=== PATIENT | male | born 1945 | race Caucasian/White ===

== ENCOUNTER → 2018-02-01 09:58 | Outpatient (CLI) | payer MEDICARE, OTHER, SELFPAY ==
--- NOTE | 2018-02-01 09:54 | DI.REPORT_ITS ---
SYMPTOMS/DIAGNOSIS: LT TKA LEFT KNEE: The patient is status post TKR. The prosthesis in good position and surrounding bone intact with no internal change when compared with the previous examination of 01/05/17.
== END ==
PROVIDERS: PCP Emergency Medicine; Visit Provider Physician Assistant
DX: M18.12 Unilateral primary osteoarthritis of first carpometacarpal joint, left hand (principal); Z96.652 Presence of left artificial knee joint; Z47.1 Aftercare following joint replacement surgery
CPT/HCPCS: 73560; 20600; 99213; J1030

== ENCOUNTER → 2018-11-21 15:04 | Outpatient (BNVA) | payer MEDICARE, SELFPAY | PROVIDERS: PCP Emergency Medicine; Visit Provider Urology | DX: N40.1 Benign prostatic hyperplasia with lower urinary tract symptoms (principal); R32 Unspecified urinary incontinence | CPT/HCPCS: 51798; 99213 ==

== ENCOUNTER 2019-01-05 11:10 | Outpatient (CLI) | payer MEDICARE, SELFPAY ==
--- NOTE | 2019-01-05 10:53 | DI.RAD_ITS ---
SYMPTOM/DIAGNOSIS: LEFT HIP PAIN LEFT HIP AND PELVIS: Three views. Comparison 09/09/17 There are again seen post surgical changes of a right total hip replacement. The orthopaedic hardware appears stable. Stable degenerative changes are seen in the left hip and lumbar spine. No acute fracture or dislocation is seen. The soft tissues show no acute abnormality.
== END 2019-01-05 11:30 ==
PROVIDERS: PCP Emergency Medicine; Referring Provider Emergency Medicine; Visit Provider Student in an Organized Health Care Education/Training Program
DX: M25.552 Pain in left hip (principal); Z96.641 Presence of right artificial hip joint; M70.62 Trochanteric bursitis, left hip
CPT/HCPCS: 20610; 99213; 73502; J1040

== ENCOUNTER → 2019-02-16 09:31 | Outpatient (BNVA) | payer MEDICARE, SELFPAY | PROVIDERS: PCP Emergency Medicine; Referring Provider Emergency Medicine; Visit Provider Student in an Organized Health Care Education/Training Program | DX: M25.552 Pain in left hip (principal); Z98.890 Other specified postprocedural states; M70.62 Trochanteric bursitis, left hip | CPT/HCPCS: 99213 ==

== ENCOUNTER → 2019-04-27 07:56 | Outpatient (BNVA) | payer MEDICARE, SELFPAY | PROVIDERS: PCP Emergency Medicine; Referring Provider Emergency Medicine; Visit Provider Student in an Organized Health Care Education/Training Program | DX: M54.16 Radiculopathy, lumbar region (principal); E11.42 Type 2 diabetes mellitus with diabetic polyneuropathy; Z79.4 Long term (current) use of insulin | CPT/HCPCS: 99214 ==

== ENCOUNTER 2019-05-21 01:01 | Outpatient (CLI) | payer MEDICARE, SELFPAY ==
--- NOTE | 2019-05-21 09:07 | DI.MRI_ITS ---
EXAM: MR LUMBAR SPINE WO CLINICAL HISTORY: RLE pain and numbness, acute rt lumbar radiculopathy, synovial cyst lumbar. TECHNIQUE: Multiplanar multisequence MRI was performed. COMPARISON: MRI - LUMBAR SPINE WO CONTRAST from 06/23/2015 MRI - LUMBAR SPINE WO CONTRAST from 06/23/2015 Lumbar Spine Complete from 10/21/2017 FINDINGS: The T12-L1 level shows minimal bulging. At L1-2, there is marked loss of disc height and prominent br oad-based disc osteophytes causing mild neural foraminal narrowing. There has been interval surgery a t this level since the previous exam and there is no longer significant central canal stenosis. There is apparent fusion between the L2 and L3 vertebral bodies. Laminectomy defects are seen from L2 thro ugh L4. At L3-4, there are broad-based disc osteophytes as well as facet degenerative changes. There is no significant central canal stenosis. There is moderate to severe bilateral neural foraminal na rrowing. At L4-5, there is again noted be more marked loss of disc height and small disc osteophytes as well as facet degenerative changes and ligamentous hypertrophy. There is mild bilateral neural f oraminal encroachment, minimal central canal stenosis. At L5-S1, the disc is relatively well maintai odalys in height. There is now a right paracentral disc herniation with superior extrusion of disc mate rial posterior to the L5 vertebral body. There are prominent facet joint degenerative changes, great er on the right. There is uyawwtla-vd-ljjrod right and depu-zj-zbpbeglq left neural foraminal narrowi ng. There is moderate central canal stenosis due to a combination of the disc herniation, facet dege nerative changes and ligamentous hypertrophy. Conus medullaris is unremarkable. Degenerative signal changes are seen in the vertebral bodies. IMPRESSION: Large right paracentral disc extrusion at L5-S1 contributing to central canal stenosis as well as cau sing nerve root impingement.
== END 2019-05-21 01:21 ==
PROVIDERS: PCP Emergency Medicine; Visit Provider Student in an Organized Health Care Education/Training Program
DX: M79.661 Pain in right lower leg (principal); R20.0 Anesthesia of skin; M54.16 Radiculopathy, lumbar region; M51.17 Intervertebral disc disorders with radiculopathy, lumbosacral region; M48.07 Spinal stenosis, lumbosacral region
CPT/HCPCS: 72148

== ENCOUNTER 2020-02-20 10:01 | Outpatient (CLI) | payer MEDICARE, SELFPAY ==
[2020-02-20 12:50] LABS: Anion Gap 7.4 mmol/L (3-11); BUN 20 mg/dL (7-18); CO2 29.6 mmol/L (21.0-32.0); CREATININE 0.94 mg/dL (0.70-1.30); Calcium 9.9 mg/dL (8.5-10.1); Chloride 101 mmol/L (98-107); Glucose 128 mg/dL (74-106); Potassium 5.2 mmol/L (3.5-5.1); Sodium 138 mmol/L (136-145)
[2020-02-20 13:02] LABS: Hemoglobin A1C 6.9 % (<5.7)
== END 2020-02-20 10:21 ==
PROVIDERS: PCP Emergency Medicine; Visit Provider Emergency Medicine
DX: E11.9 Type 2 diabetes mellitus without complications (principal); I10 Essential (primary) hypertension
CPT/HCPCS: 36415; 80048; 83036

== ENCOUNTER → 2020-03-20 13:12 | Outpatient (BNVA) | payer MEDICARE, SELFPAY | PROVIDERS: PCP Emergency Medicine; Referring Provider Emergency Medicine; Visit Provider Urology | DX: N40.1 Benign prostatic hyperplasia with lower urinary tract symptoms (principal); R32 Unspecified urinary incontinence; E11.42 Type 2 diabetes mellitus with diabetic polyneuropathy; Z79.4 Long term (current) use of insulin | CPT/HCPCS: 99213 ==

== ENCOUNTER 2020-10-24 12:09 | Outpatient (REF) | payer MEDICARE, SELFPAY ==
[2020-10-24 18:28] LABS: Bilirubin Negative (Negative); Blood Negative (Negative); Clarity Clear (Clear); Glucose 500 mg/dL (Negative); Ketones Trace mg/dL (Negative); Leukocyte Esterase Negative (Negative); Nitrite Negative (Negative); Specific Gravity 1.025 (1.005-1.025); Urobilinogen 0.2 EU/dL (Up TO 0.2)
[2020-10-24 18:47] LABS: ALT 27 U/L (16-63); AST 20 U/L (15-37); Albumin 3.9 g/dL (3.4-5.0); Alkaline Phosphatase 91 U/L (46-116); Amylase 50 U/L (25-115); Anion Gap 9.1 mmol/L (3-11); BUN 34 mg/dL (7-18); Bilirubin, Total 0.4 mg/dL (0.2-1.0); CO2 25.9 mmol/L (21.0-32.0); CREATININE 0.9 mg/dL (0.70-1.30); Calcium 9.3 mg/dL (8.5-10.1); Chloride 103 mmol/L (98-107); Glucose 134 mg/dL (74-106); Lipase 70 U/L (73-393); Potassium 4.7 mmol/L (3.5-5.1); Sodium 138 mmol/L (136-145)
[2020-10-24 18:51] LABS: HCT 40.7 % (40.0-50.0); HGB 13.5 g/dL (13.5-17.5); MCH 32.8 pg (27.0-33.0); MCHC 33.2 % (32.0-36.0); MPV 11.5 fL (8.0-11.0); Platelet Count 182 10^3/uL (130-400); RBC 4.11 10^6/uL (4.36-5.78); RDW 13.7 % (11.8-14.1); RDW-SD 49.3 fL; WBC 11.06 10^3/uL (4.4-10.8)
== END 2020-10-24 12:10 | disposition home or self-care (01) ==
LOC: LBN 12:09
PROVIDERS: PCP Emergency Medicine; Visit Provider Emergency Medicine
DX: R10.11 Right upper quadrant pain (principal); E11.9 Type 2 diabetes mellitus without complications; R30.0 Dysuria
CPT/HCPCS: 80053; 83690; 85027; 81003; 82150

== ENCOUNTER 2020-11-18 10:23 | Outpatient (CLI) | payer MEDICARE, SELFPAY ==
[2020-11-18 12:33] LABS: Abs Immature Grans 0.04 10^3/uL (0.0-0.06); Absolute Basophil Count 0.12 10^3/uL (0.0-0.2); Absolute Eosinophil Count 0.67 10^3/uL (0.0-0.7); Absolute Lymphocyte Count 1.91 10^3/uL (1.2-3.4); Absolute Monocyte Count 1.03 10^3/uL (0.1-0.8); Basophils % 1.3; ESR 11 mm/hr (0-20); Eosinophils % 7.2; HCT 42.9 % (40.0-50.0); HGB 13.9 g/dL (13.5-17.5); Immature Grans % 0.4; Lymphocytes % 20.4; MCH 32.4 pg (27.0-33.0); MCHC 32.4 % (32.0-36.0); MPV 10.1 fL (8.0-11.0); Neutrophils % 59.7; Nucleated RBC 0 %; Platelet Count 317 10^3/uL (130-400); RBC 4.29 10^6/uL (4.36-5.78); RDW 13.8 % (11.8-14.1); RDW-SD 49.7 fL; WBC 9.37 10^3/uL (4.4-10.8)
[2020-11-18 12:45] LABS: C-Reactive Protein 3.02 mg/dL (0.0-0.3)
[2020-11-19 11:33] LABS: Lyme Ab w Rflx to Lyme Confirm Negative (Negative)
== END 2020-11-18 10:24 | disposition home or self-care (01) ==
LOC: LOS 10:23
PROVIDERS: PCP Emergency Medicine; Visit Provider Emergency Medicine
DX: M35.3 Polymyalgia rheumatica (principal); M25.59 Pain in other specified joint; D72.829 Elevated white blood cell count, unspecified
CPT/HCPCS: 36415; 80061; 85652; 85025; 86140; 86618

== ENCOUNTER 2020-12-04 16:28 | Outpatient (REF) | payer MEDICARE, SELFPAY ==
[2020-12-04 21:18] LABS: Abs Immature Grans 0.03 10^3/uL (0.0-0.06); Absolute Basophil Count 0.08 10^3/uL (0.0-0.2); Absolute Eosinophil Count 0.32 10^3/uL (0.0-0.7); Absolute Lymphocyte Count 1.57 10^3/uL (1.2-3.4); Absolute Monocyte Count 1.22 10^3/uL (0.1-0.8); Absolute Neutrophil Count 5.72 10^3/uL (1.2-6.7); Basophils % 0.9; Eosinophils % 3.6; HCT 41.3 % (40.0-50.0); HGB 13.7 g/dL (13.5-17.5); Immature Grans % 0.3; Lymphocytes % 17.6; MCH 32.5 pg (27.0-33.0); MCHC 33.2 % (32.0-36.0); MCV 97.9 fL (80-95); MPV 10.6 fL (8.0-11.0); Monocytes % 13.6; Nucleated RBC 0 %; Platelet Count 366 10^3/uL (130-400); RBC 4.22 10^6/uL (4.36-5.78); RDW 13.5 % (11.8-14.1); RDW-SD 47.9 fL; WBC 8.94 10^3/uL (4.4-10.8)
[2020-12-04 21:21] LABS: ESR 34 mm/hr (0-20)
[2020-12-04 21:29] LABS: ALT 20 U/L (16-63); AST 13 U/L (15-37); Albumin 3.6 g/dL (3.4-5.0); Alkaline Phosphatase 78 U/L (46-116); Anion Gap 8.6 mmol/L (3-11); BUN 26 mg/dL (7-18); Bilirubin, Total 0.3 mg/dL (0.2-1.0); C-Reactive Protein 5.92 mg/dL (0.0-0.3); CO2 26.4 mmol/L (21.0-32.0); CREATININE 0.9 mg/dL (0.70-1.30); Calcium 9.7 mg/dL (8.5-10.1); Chloride 104 mmol/L (98-107); Glucose 129 mg/dL (74-106); Potassium 4.5 mmol/L (3.5-5.1); Sodium 139 mmol/L (136-145)
[2020-12-09 08:54] LABS: Cyclic Citrullinated Peptide <2.5 U/mL (<5.0); Lyme Ab w Rflx to Lyme Confirm Negative (Negative)
[2020-12-09 14:29] LABS: Albumin 56.9 % (55.8-66.1); Total Protein 6.9 g/dL (6.3-8.2)
== END 2020-12-04 16:29 | disposition home or self-care (01) ==
LOC: LBN 16:28
PROVIDERS: PCP Emergency Medicine; Visit Provider Emergency Medicine
DX: M19.90 Unspecified osteoarthritis, unspecified site (principal); G56.00 Carpal tunnel syndrome, unspecified upper limb; M25.59 Pain in other specified joint; M25.571 Pain in right ankle and joints of right foot; M25.572 Pain in left ankle and joints of left foot; M25.542 Pain in joints of left hand; M25.541 Pain in joints of right hand; R53.1 Weakness; R07.1 Chest pain on breathing
CPT/HCPCS: 80053; 85652; 86200; 84165; 85025; 86140; 86618

== ENCOUNTER 2020-12-17 02:03 | Outpatient (CLI) | payer MEDICARE, SELFPAY ==
--- NOTE | 2020-12-17 08:35 | DI.NM_ITS ---
Exam(s) NM BONE SCAN 3 PHASE EXAM: NM BONE SCAN 3 PHASE CLINICAL HISTORY: bone pain,ARTHRITIS, M19.90. TECHNIQUE: Injected Dose: 25 mCi Tc-99m MDP COMPARISON: CR Lumbar Spine Complete from 10/21/2017 CR Lumbar Spine Complete from 10/21/2017 CR XR hip LT complete AP pelvis from 01/05/2019 CR XR hip LT complete AP pelvis from 01/05/2019 FINDINGS: The immediate flow/perfusion phase reveals no significant focal abnormal osseous uptake in the region of lumbar spine. Blood pool images reveal no significant abnormal osseous uptake. Expected uptake in the kidneys is s een. Kidneys exhibit size. Delayed images reveal abnormal uptake at the superior endplate level of L2 vertebral body. Also incr eased uptake on both sides of the upper T11 and T12 vertebral bodies. There is no abnormal uptake in the upper thoracic and cervical spines nor in the lower levels of the lumbar spine. There is no abnormal uptake in the rib cages nor in the shoulder girdles. No abnormal uptake is evid ent in the skull. Symmetrical uptake in the sternoclavicular joints is noted and is probably degenerative. There is photopenic zone in the right hip consistent with prosthesis. Some focal uptake is seen in t he ipsilateral greater trochanter. Most recent plain film images of this region were January 2019. In the left hip region there is a focus of increased uptake seen in the region of the inferior aspect of the acetabulum, posteriorly, best seen on the posterior images There is a photopenic zone in the left knee consistent with prosthesis. No significant uptake in thi s region. Some uptake in the opposite-right knee is probably degenerative. IMPRESSION: 1. Areas of abnormal radiopharmaceutical uptake seen in the lower thoracic and upper lumbar regions a s described above. Plain films are recommended. Most recent plain films were in October 2017. 2. There is a focus of abnormal uptake is seen in the greater trochanter of the right hip. This is t he hip which has a prosthesis. Plain films recommended. Most recent plain films were 2018 3. There is a focus of abnormal uptake seen in the posterior left hip acetabular region. Plain films also recommend. DATA REPOSITORY:
== END 2020-12-17 02:23 ==
PROVIDERS: PCP Emergency Medicine; Visit Provider Emergency Medicine
DX: M19.90 Unspecified osteoarthritis, unspecified site (principal); Z96.641 Presence of right artificial hip joint
CPT/HCPCS: 78315

== ENCOUNTER 2021-01-13 16:59 | Emergency (ER) | payer MEDICARE, SELFPAY ==
[2021-01-13] VITALS (27 sets, daily range): BP systolic 86–148; BP diastolic 64–92; PULSE 56–76; RESP 9–23; TEMP 37.4; O2SAT 94–96
--- NOTE | 2021-01-13 17:16 | W.ED.GENAD ---
Discharge Plan Disposition Patient Disposition: HOME Condition: Stable Discharge Details Clinical Impression: Left leg weakness, History of peripheral neuropathy Primary Care Provider: Robbie Hwang ED Provider: Jelena Rico Home Meds and New Rx's Prescriptions: Continued acetaminophen [Masophen] 500 mg tablet 1,000 mg PO TID RF: 0 Jardiance 10 mg tablet 10 mg PO DAILY RF: 0 mirtazapine [Remeron] 15 mg tablet 15 mg PO QHS Qty: 90 RF: 2 prednisone 5 mg tablet 5 mg PO DAILY RF: 0 (DME) pen needle, diabetic [BD Ultra-Fine Iris Pen Needle] 32 gauge x 5/32 needle 1 ea Miscellaneous DAILY Qty: 200 RF: 8 hydroxyzine HCl 25 mg tablet 25 mg PO daily prn Qty: 90 RF: 3 losartan 25 mg tablet 25 mg PO DAILY Qty: 90 RF: 3 rosuvastatin [Crestor] 5 mg tablet 5 mg PO DAILY Qty: 90 RF: 3 ONE TOUCH ULTRA 1 EACH EACH 1 ea Miscellaneous AC Qty: 270 RF: 3 ONE TOUCH LANCETS 1 EACH EACH 1 ea Miscellaneous BID Qty: 180 RF: 3 (DME) blood-glucose meter 1 EACH misc 1 ea Miscellaneous ONCE Qty: 1 RF: 0 methotrexate sodium 2.5 MG tablet 5 tab PO WEEKLY RF: 0 folic acid 1 MG tablet 1 mg PO DAILY RF: 0 (DME) OneTouch Ultra Test 1 EACH strip 1 ea Miscellaneous TID Qty: 400 RF: 4 Levemir FlexTouch U-100 Insuln 100 unit/mL (3 mL) insulin pen 24 unit subcut BID RF: 0 metformin 500 mg tablet 500 mg PO BID Qty: 180 RF: 3 ibuprofen 800 mg tablet 800 mg PO BID PRN (Reason: pain) Qty: 180 RF: 0 cephalexin 500 mg capsule 500 mg PO TID Qty: 270 RF: 1 omeprazole 20 mg capsule,delayed release(DR/EC) 20 mg PO DAILY Qty: 90 RF: 3 insulin aspart U-100 [Novolog PenFill U-100 Insulin] 100 unit/mL cartridge 3 - 10 unit subcut PRN PRNRF: 0 aspirin [Aspir-81] 81 MG tablet,delayed release (DR/EC) 81 mg PO DAILY RF: 0 Discharge Instructions Instructions: Peripheral Neuropathy (ED), Weakness (ED) Additional Instructions: Take your regular medications as directed. Call your neurologist tomorrow morning to schedule a follow up appointment in the next week for re-evaluation and for consideration for outpatient lumbar spine MRI. Return immediately to the emergency department if you develop any worsening or new concerning symptoms such as bowel or bladder function, worsening leg weakness or inability to ambulate. Discharge Data Discharge Date/Time-TO BE ENTERED AT DEPARTURE: 01/13/21 20:55 Discharge Physician: Jelena Rico Medical Decision Making 75-year-old male who presents for evaluation for Dr. Hwang after noted to have left leg weakness for the last 3 days. His left leg weakness has improved but now complains of mainly difficulty controlling his left leg and spasticity when walking. He denies any leg numbness or pain. No cauda equina symptoms. No urinary symptoms or fever. No injury. Patient appears comfortable and nontoxic. His vitals are within normal limits. He has no midline lumbar spinal or bilateral paraspinal tenderness. Midline lumbar surgical scar well-healed without signs of trauma or cellulitis. He has no focal deficits on exam. Muscle strength normal to bilateral lower extremities. His reflexes are hyporeactive throughout. His distal pulses are intact. Skin is normal to inspection. History and presentation does not appear consistent with CVA. At this point in time, I am not concerned of an acute neurological issue such as cauda equina syndrome. MRI is not available. Will obtain screening labs, CT head, CT lumbar spine and give pain medication and muscle relaxers and reassess. Labs and imaging reviewed and unremarkable. White blood cell count 10. CRP 1.16 which is improved compared to previous. CT head negative. CT lumbar spine notes severe degenerative disc disease but no other acute findings. Patient reassessed and states his back pain is better. He ambulated and still has some mild ataxia in his left leg but states he feels it is slightly better. Case discussed with [facility] neurology who reviewed the images and feel that this is likely a peripheral neuropathy, i.e. a peroneal neuropathy in addition to his baseline peripheral neuropathy. Patient has seen [facility] neurology for his peripheral neuropathy and Dr. Pelletier is recommending he follow-up with [facility] neurology as soon as possible for reevaluation. Does not see indication for urgent MRI which I agree. Patient feels comfortable with plan and feels good going home. He was given 2 tabs of Valium to help with sleep. Patient placed on care management list to help arrange for this follow-up appointment with neurology. Medical Records Medical records reviewed: Yes I reviewed the patient's medical records. Imaging Data Radiologic Study: Radiologist's impression: CT Lumbar Spine Without Contrast Exam date and time: 01/13/2021 5:53 PM Age: 75 years old Clinical indication: Other: Lower back pain, L leg weakness/spasticity, R/O disc herniation; Additional info: Lower back pain, L leg weakness/spasticity, R/O disc herniation TECHNIQUE: Imaging protocol: Computed tomography images of the lumbar spine without contrast. Total images: 2121 Radiation optimization: All CT scans at this facility use at least one of these dose optimization techniques: automated exposure control; mA and/or kV adjustment per patient size (includes targeted exams where dose is matched to clinical indication); or iterative reconstruction. COMPARISON: MR LUMBAR SPINE WO 05/21/2019 9:07 AM FINDINGS: Vertebrae: Alignment is normal. Vertebral body heights are maintained. There is severe multilevel disc height loss, endplate spurring and facet hypertrophy. Discs/Spinal canal/Neural foramina: No significant disc protrusion. No severe spinal canal stenosis. No significant neural foraminal narrowing. Other bones/joints: No acute bone abnormality. Stomach and bowel: There are sigmoid/descending colonic diverticuli. Vasculature: The aorta demonstrates moderate atherosclerotic calcification. Soft tissues: Unremarkable. IMPRESSION: 1. No acute abnormality. 2. Severe degenerative disc disease. 3. Sigmoid/descending colonic diverticulosis. CT Head Without Contrast Exam date and time: 01/13/2021 5:53 PM Age: 75 years old Clinical indication: Other: L leg weakness, spasticity, R/O acute CVA TECHNIQUE: Imaging protocol: Computed tomography of the head without contrast. Other technique: STROKE PROTOCOL was implemented. COMPARISON: No relevant prior studies available. FINDINGS: Brain: Changes of mild cerebral and cerebellar atrophy. No acute focal intracranial lesions. Cerebral ventricles: No ventriculomegaly. Paranasal sinuses: Mucosal polyp versus retention cyst within left maxillary sinus, partially imaged. No fluid levels. Mastoid air cells: Unremarkable as visualized. No mastoid effusion. Bones/joints: No acute fracture. Soft tissues: Unremarkable. IMPRESSION: Changes of cerebral and cerebellar atrophy. No acute focal intracranial lesions. Lab Data Lab results reviewed: Yes I reviewed the patient's lab results. Labs: Laboratory Tests Range/Units 01/13/21 01/13/21 01/13/21 17:55 17:55 17:55 WBC (4.4-10.8) 10^3/uL 10.94 H RBC (4.36-5.78) 10^6/uL 4.19 L Hgb (13.5-17.5) g/dL 13.2 L Hct (40.0-50.0) % 39.2 L MCV (80-95) fL 93.6 MCH (27.0-33.0) pg 31.5 MCHC (32.0-36.0) % 33.7 RDW (11.8-14.1) % 15.6 H Plt Count (130-400) 10^3/uL 194 MPV (8.0-11.0) fL 10.6 Immature Gran % 0.4 Neutrophils % 68.3 Lymphocytes % 18.5 Monocytes % 8.8 Eosinophils % 3.5 Basophils % 0.5 Nucleated RBC % % 0 Absolute Neutrophils (1.2-6.7) 10^3/uL 7.47 H Absolute Lymphocytes (1.2-3.4) 10^3/uL 2.02 Absolute Monocytes (0.1-0.8) 10^3/uL 0.96 H Absolute Eosinophils (0.0-0.7) 10^3/uL 0.38 Absolute Basophils (0.0-0.2) 10^3/uL 0.05 ESR (0-20) mm/hr 15 Sodium (136-145) mmol/L 140 Potassium (3.5-5.1) mmol/L 3.9 Chloride (98-107) mmol/L 104 Carbon Dioxide (21.0-32.0) mmol/L 25.9 Anion Gap (3-11) mmol/L 10.1 BUN (7-18) mg/dL 27 H Creatinine (0.70-1.30) mg/dL 1.0 Estimated GFR/1.73 m2 (mL/min/1.73m2) >= 60.00 Glucose (74-106) mg/dL 125 H Calcium (8.5-10.1) mg/dL 9.7 Total Bilirubin (0.2-1.0) mg/dL 0.5 AST (15-37) U/L 17 ALT (16-63) U/L 27 Alkaline Phosphatase (46-116) U/L 75 C-Reactive Protein (0.0-0.3) mg/dL 1.16 H Total Protein (6.4-8.2) g/dL 7.3 Albumin (3.4-5.0) g/dL 3.8 HPI General Mode of arrival: ambulatory. Date/Time Provider Initiated Documentation: 01/13/21 17:05. Limitations to Documentation: no limitations. Information obtained by: patient. HPI Narrative: Patient is a 75-year-old male with a history of chronic back pain, multiple lumbar spine surgeries, osteoarthritis, diabetes, polymyalgia rheumatica, diabetic neuropathy who presents with left leg weakness and sensation of spasticity when walking for the past 3 days. Patient states he awoke 3 days ago in the morning and stood up to get out of bed and fell due to left leg weakness. He states he had difficulty bearing weight on his left leg due to weakness the entire day. He states for the past 2 days he has had improved muscle strength in his left leg but feels that the left leg is difficult to control and spastic at times. He states he has chronic left-sided back pain for several years and states this is no worse than usual. He states he has had chronic right mid back and right upper quadrant pain for several months which has been followed by Dr. Hwang with unremarkable bone scans and liver scans and was told it may be herpes zoster although he never developed a rash. Patient denies any pain in his leg. He denies any bowel or bladder incontinence, saddle anesthesia or acute urinary symptoms. Patient states he has had an increase in his ocular migraines occurring twice weekly over the past couple weeks. He states he has never seen a neurologist for his migraines. He denies any upper extremity symptoms or right leg symptoms. Related Data Home Medications Medication Instructions Recorded Confirmed blood-glucose meter #1 ea 01/10/15 12/25/20 folic acid 1 mg PO DAILY tab-cap 03/11/15 01/13/21 methotrexate sodium 5 tab PO WEEKLY 03/11/15 01/13/21 unbound technologiesTouch Ultra Test #400 strip 06/16/16 12/25/20 aspirin [Aspir-81] 81 mg PO DAILY 02/02/17 01/13/21 acetaminophen 500 mg tablet 1,000 mg PO TID tab 05/19/18 01/13/21 empagliflozin 10 mg tablet 10 mg PO DAILY 05/19/18 01/13/21 insulin aspart U-100 100 unit/mL 3 - 10 unit SUBCUT PRN PRN 01/05/19 01/13/21 subcutaneous cartridge insulin detemir U-100 100 unit/mL 24 unit SUBCUT BID ml 01/05/19 01/13/21 (3 mL) subcutaneous pen pen needle, diabetic 32 gauge x #200 each 02/08/20 12/25/20 metformin 500 mg tablet 500 mg PO BID #180 tab-cap 06/12/20 01/13/21 hydroxyzine HCl 25 mg tablet 25 mg PO daily prn #90 tab 10/24/20 01/13/21 losartan 25 mg tablet 25 mg PO DAILY #90 tab-cap 10/24/20 01/13/21 rosuvastatin 5 mg tablet 5 mg PO DAILY #90 tab-cap 10/24/20 01/13/21 ibuprofen 800 mg tablet 800 mg PO BID PRN #180 tab 11/05/20 01/13/21 mirtazapine 15 mg tablet 15 mg PO QHS #90 tab 12/04/20 01/13/21 cephalexin 500 mg capsule 500 mg PO TID #270 cap 01/09/21 01/13/21 omeprazole 20 mg capsule,delayed 20 mg PO DAILY #90 tab-cap 01/09/21 01/13/21 release prednisone 5 mg tablet 5 mg PO DAILY 01/13/21 01/13/21 Previous Rx's Medication Instructions Recorded pen needle, diabetic 32 gauge x #200 each 02/08/20 metformin 500 mg tablet 500 mg PO BID #180 tab-cap 06/12/20 hydroxyzine HCl 25 mg tablet 25 mg PO daily prn #90 tab 10/24/20 losartan 25 mg tablet 25 mg PO DAILY #90 tab-cap 10/24/20 rosuvastatin 5 mg tablet 5 mg PO DAILY #90 tab-cap 10/24/20 ibuprofen 800 mg tablet 800 mg PO BID PRN #180 tab 11/05/20 mirtazapine 15 mg tablet 15 mg PO QHS #90 tab 12/04/20 cephalexin 500 mg capsule 500 mg PO TID #270 cap 01/09/21 omeprazole 20 mg capsule,delayed 20 mg PO DAILY #90 tab-cap 01/09/21 release Allergies Allergy/AdvReac Type Severity Reaction Status Date / Time atorvastatin AdvReac Mild muscle/joint Verified 01/13/21 17:14 aches pravastatin AdvReac Mild muscle/joint Verified 01/13/21 17:14 aches simvastatin AdvReac Mild muscle/joint Verified 01/13/21 17:14 aches General Stated Complaint: CVA/TIA ISMA: 3 Review of Systems All systems reviewed & are unremarkable except as noted in HPI and below Constitutional Constitutional: Reports as per HPI, Denies chills and Denies fever(s) Eyes Eyes: Denies blurry vision ENT Ears, Nose, Mouth, and Throat: Denies dizziness, Denies sore throat and Denies throat swelling Cardiovascular Cardiovascular: Denies chest pain and Denies dyspnea Respiratory Respiratory: Denies cough and Denies dyspnea Gastrointestinal Gastrointestinal: Denies abdominal pain, Denies diarrhea and Denies vomiting Genitourinary Genitourinary: Denies hematuria and Denies dysuria Musculoskeletal Musculoskeletal: Reports back pain and Denies numbness Comments: Left leg weakness Integumentary/Breasts Skin/Breast: Denies lesions and Denies rash Neurologic Neurologic: Denies dizziness, Reports localized weakness and Denies numbness Allergic/Immunologic Allergic/Immunologic: Denies throat swelling [facility] Medical History (Updated 01/13/21 @ 20:12 by Jelena Rico DO) Arthritis Arthritis of carpometacarpal (CMC) joint of left thumb (11/21/17) Benign prostatic hyperplasia Bilateral shoulder pain Carpal tunnel syndrome 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 ELIDA Guillermo Osteoarthritis of lumbar spine (09/12/15) Peripheral neuralgia Polymyalgia rheumatica Primary osteoarthritis of left knee (10/06/16) Psoriasis Regular astigmatism (07/31/12) RUQ pain Synovial cyst of lumbar facet joint (12/26/17) Toenail deformity Trigger thumb, left thumb (10/21/17) Type 2 diabetes mellitus with diabetic polyneuropathy, with long-term current use of insulin (11/10/16) Surgical History (Updated 04/28/19 @ 09:46 by Felton Goldman MD) Colonoscopy - MAC 10/17;NEG Knee debridement 01/20 Replacement of total knee joint (~12/2016) Status post total left knee replacement (01/14/17) Total replacement of hip (~2006) Family History Mother Alcohol abuse Depression Heart disease Father Alcohol abuse Sister No problems noted. Brother No problems noted. Brother Depression Brother No problems noted. Social History Smoking/Tobacco Use Status: Former Tobacco Use Tobacco: How many years used: 6 Smoking risk assessment performed?: Yes Drug use: Rarely Substance use type: marijuana Do you feel safe at home: Yes Do you feel safe in your relationship?: Yes Exam Const General: cooperative and no acute distress HENMT Head: normal to inspection Face and sinus: normal facial exam Eyes General: appearance normal, both eyes and all related structures EOM: EOM intact bilaterally Neck Neck: normal visual inspection and No submandibular swelling Lymphatic: no lymphadenopathy noted Chest Chest: normal inspection of the chest and no tenderness Resp Effort & Inspection: normal respiratory effort and able to speak in complete sentences Auscultation: clear to auscultation bilaterally Cardio Rate: regular rate Rhythm: regular rhythm GI Inspection: normal to inspection Palpation: soft, not firm, not rigid and nontender Auscultation: normal bowel sounds Back/Spine/Pelvis Thoracic/Lumbar Spine: surgical scar(s) present (Midline lumbar spine, no cellulitis or trauma) Skin General skin exam: no rashes or lesions noted Neuro General: patient alert, patient awake and patient oriented x3 Cognition: normal cognition Speech: speech normal Motor: muscle tone normal throughout Sensory Exam: no sensory deficits noted DTR's: Rt Patellar: 0, Lt Patellar: 0, Rt Ankle: 0 and Lt Ankle: 0 Plantar Reflexes: Equivocal: bilateral (negative babinski b/l ) Other: No clonus bilateral lower extremities. Extrem General: normal to inspection, full ROM, capillary refill normal, no calf tenderness bilaterally and no edema Other: Bilateral DP/PT pulses intact. Psych Appearance: grossly normal Mental Status: mental status grossly normal Speech and Movement: speech and movement normal Affect: normal affect Course Vital Signs Vital signs: Vital Signs Temperature 99.3 F 01/13/21 17:07 Pulse 66 01/13/21 17:07 Respiratory Rate 17 01/13/21 17:07 Blood Pressure 148/67 H 01/13/21 17:07 Pulse Oximetry 96 01/13/21 17:07 Temperature 99.3 F 01/13/21 17:07 Temperature Source Temporal Artery Scan 01/13/21 17:07 Pulse 66 01/13/21 17:07 Respiratory Rate 17 01/13/21 17:07 Respiratory Effort Non-Labored 01/13/21 17:12 Blood Pressure 148/67 H 01/13/21 17:07 Blood Pressure Position Sitting 01/13/21 17:07 Pulse Oximetry 96 01/13/21 17:07 Oxygen Delivery Method Room Air 01/13/21 17:07 Oxygen Flow Rate 0 01/13/21 17:07 Pain Level 4 01/13/21 17:07
--- NOTE | 2021-01-13 17:45 | DI.CT_ITS ---
Exam(s) CT HEAD WO EXAM: CT HEAD WO CLINICAL HISTORY: L leg weakness, spasticity. TECHNIQUE: Imaging Protocol: Axial computed tomography images with coronal and sagittal reformatted images were created and reviewed COMPARISON: No exams were available for comparison FINDINGS: Ventricles and Extra axial spaces: Normal in size and morphology for the patient's age. Hemorrhage: None. Cerebral parenchyma: Mild atrophy, consistent with the patient's age.. No significant white matter changes. Midline shift: None. Brainstem/Cerebellum: Normal. Calvarium: Normal. Visualized Paranasal sinuses/Mastoids: Mucous retention cyst floor left maxillary sinus. IMPRESSION: No acute abnormality. RADIATION DOSE DELIVERED: 766mGy.cm Total DLP 766mGy.cm Total DLP DATA REPOSITORY: All CT scans at this facility are submitted to the National Radiology Data Registry (NRDR) Dose Index Registry (DIR) with the [employer] ([employer]). RADIATION OPTIMIZATION: All CT scans at this facility use at least one of these dose optimization te chniques: automated exposure control; mA and/or kV adjustment per patient size (includes targeted exa ms where dose is matched to clinical indication); or iterative reconstruction.
--- NOTE | 2021-01-13 17:45 | DI.CT_ITS ---
Exam(s) CT LUMBAR SPINE WO EXAM: CT LUMBAR SPINE WO CLINICAL HISTORY: lower back pain, L leg weakness/spasticity. TECHNIQUE: Imaging Protocol: Axial computed tomography images with coronal and sagittal reformatted images were created and reviewed CONTRAST MATERIAL: Noncontrast COMPARISON: MR MR LUMBAR SPINE WO from 05/21/2019 MR MR LUMBAR SPINE WO from 05/21/2019 FINDINGS: There is no evidence of fracture. The vertebral bodies are maintained in height. There is severe na rrowing of the disc spaces from L1-2 through L4-5 with prominent endplate osteophytes. There is bila teral neural foraminal narrowing at multiple levels. There is obliteration of the disc at L2-3. Thi s appears unchanged when compared with previous MRI. An L5 laminectomy defect is seen. Previously no nba disc herniation is no longer seen.. There are prominent facet joint degenerative changes. The aorta shows moderate calcification is normal in diameter. There are parapelvic cysts in the left kidney. Diverticulosis is noted in the sigmoid colon. The bladder is unremarkable. There is a rig ht hip prosthesis creating artifact.. IMPRESSION: Severe degenerative disc changes and facet degenerative changes. L5 laminectomy. RADIATION DOSE DELIVERED: 1,037.33mGy.cm Total DLP DATA REPOSITORY: All CT scans at this facility are submitted to the National Radiology Data Registry (NRDR) Dose Index Registry (DIR) with the [employer] (ACR). RADIATION OPTIMIZATION: All CT scans at this facility use at least one of these dose optimization te chniques: automated exposure control; mA and/or kV adjustment per patient size (includes targeted exa ms where dose is matched to clinical indication); or iterative reconstruction.
[2021-01-13] MEDS: Dexamethasone 10 MG/ML VIAL IVP (18:05)
[2021-01-13] MEDS: diazePAM 5 MG TAB PO (18:05)
[2021-01-13] MEDS: MORPHine 4 MG/ML SYR IVP (18:10)
[2021-01-13 18:12] LABS: Abs Immature Grans 0.04 10^3/uL (0.0-0.06); Absolute Eosinophil Count 0.38 10^3/uL (0.0-0.7); Absolute Lymphocyte Count 2.02 10^3/uL (1.2-3.4); Absolute Monocyte Count 0.96 10^3/uL (0.1-0.8); Basophils % 0.5; Eosinophils % 3.5; HCT 39.2 % (40.0-50.0); HGB 13.2 g/dL (13.5-17.5); Immature Grans % 0.4; Lymphocytes % 18.5; MCH 31.5 pg (27.0-33.0); MCHC 33.7 % (32.0-36.0); MCV 93.6 fL (80-95); MPV 10.6 fL (8.0-11.0); Monocytes % 8.8; Neutrophils % 68.3; Nucleated RBC 0 %; Platelet Count 194 10^3/uL (130-400); RBC 4.19 10^6/uL (4.36-5.78); RDW 15.6 % (11.8-14.1); RDW-SD 52.6 fL; WBC 10.94 10^3/uL (4.4-10.8)
[2021-01-13 18:14] LABS: Absolute Basophil Count 0.05 10^3/uL (0.0-0.2); Absolute Neutrophil Count 7.47 10^3/uL (1.2-6.7)
[2021-01-13 18:18] LABS: ESR 15 mm/hr (0-20)
[2021-01-13 18:28] LABS: ALT 27 U/L (16-63); AST 17 U/L (15-37); Albumin 3.8 g/dL (3.4-5.0); Alkaline Phosphatase 75 U/L (46-116); Anion Gap 10.1 mmol/L (3-11); BUN 27 mg/dL (7-18); Bilirubin, Total 0.5 mg/dL (0.2-1.0); C-Reactive Protein 1.16 mg/dL (0.0-0.3); CO2 25.9 mmol/L (21.0-32.0); Calcium 9.7 mg/dL (8.5-10.1); Chloride 104 mmol/L (98-107); Glucose 125 mg/dL (74-106); Potassium 3.9 mmol/L (3.5-5.1); Sodium 140 mmol/L (136-145); Total Protein 7.3 g/dL (6.4-8.2)
--- NOTE | 2021-01-13 18:55 | DI.VRAD_ITS ---
PROCEDURE INFORMATION: Exam: CT Head Without Contrast Exam date and time: 01/13/2021 5:53 PM Age: 75 years old Clinical indication: Other: L leg weakness, spasticity, R/O acute CVA TECHNIQUE: Imaging protocol: Computed tomography of the head without contrast. Other technique: STROKE PROTOCOL was implemented. COMPARISON: No relevant prior studies available. FINDINGS: Brain: Changes of mild cerebral and cerebellar atrophy. No acute focal intracranial lesions. Cerebral ventricles: No ventriculomegaly. Paranasal sinuses: Mucosal polyp versus retention cyst within left maxillary sinus, partially imaged. No fluid levels. Mastoid air cells: Unremarkable as visualized. No mastoid effusion. Bones/joints: No acute fracture. Soft tissues: Unremarkable. IMPRESSION: Changes of cerebral and cerebellar atrophy. No acute focal intracranial lesions. ASSESSMENT: ASPECTS ([place] Stroke Program Early CT Score) is 10. Dictated and Authenticated by: Isiah Holguin MD. Ordering:CAL Bowles MD
--- NOTE | 2021-01-13 19:09 | DI.VRAD_ITS ---
PROCEDURE INFORMATION: Exam: CT Lumbar Spine Without Contrast Exam date and time: 01/13/2021 5:53 PM Age: 75 years old Clinical indication: Other: Lower back pain, L leg weakness/spasticity, R/O disc herniation; Additional info: Lower back pain, L leg weakness/spasticity, R/O disc herniation TECHNIQUE: Imaging protocol: Computed tomography images of the lumbar spine without contrast. Total images: 2121 Radiation optimization: All CT scans at this facility use at least one of these dose optimization techniques: automated exposure control; mA and/or kV adjustment per patient size (includes targeted exams where dose is matched to clinical indication); or iterative reconstruction. COMPARISON: MR LUMBAR SPINE WO 05/21/2019 9:07 AM FINDINGS: Vertebrae: Alignment is normal. Vertebral body heights are maintained. There is severe multilevel disc height loss, endplate spurring and facet hypertrophy. Discs/Spinal canal/Neural foramina: No significant disc protrusion. No severe spinal canal stenosis. No significant neural foraminal narrowing. Other bones/joints: No acute bone abnormality. Stomach and bowel: There are sigmoid/descending colonic diverticuli. Vasculature: The aorta demonstrates moderate atherosclerotic calcification. Soft tissues: Unremarkable. IMPRESSION: 1. No acute abnormality. 2. Severe degenerative disc disease. 3. Sigmoid/descending colonic diverticulosis. Dictated and Authenticated by: Wilbert Alexandre MD. Ordering:CAL Bowles MD
[2021-01-13] MEDS: diazePAM 5 MG TAB 10 MG PO (20:55)
--- NOTE | 2021-01-15 08:50 | PDOC.ERCMPRO ---
- If Service Date Differs Date of service: 01/15/21 Time of Service: 08:50 Care Management Progress Note Ovi is seen in the ED for peripheral neuropathy and left leg weakness. At the request of ED provider, CM coordinates a referral to [facility] to assist Ovi in obtaining an appointment.
== END 2021-01-13 20:55 | disposition home or self-care (01) ==
PROVIDERS: Emergency Provider Physician Assistant; PCP Emergency Medicine
DX: R53.1 Weakness (principal); R25.2 Cramp and spasm; E11.42 Type 2 diabetes mellitus with diabetic polyneuropathy; Z79.4 Long term (current) use of insulin
CPT/HCPCS: 36415; 80053; 85652; 96374; 96375; 99284; 70450; 72131; 85025; 86140; J1100; J2270

== ENCOUNTER 2021-02-25 01:59 | Outpatient (CLI) | payer MEDICARE, SELFPAY ==
--- NOTE | 2021-02-25 07:00 | DI.US_ITS ---
Exam(s) US RENAL EXAM: US RENAL CLINICAL HISTORY: Left kidney mass,N28.89 TECHNIQUE: Ultrasound of both kidneys performed using standard protocol. COMPARISON: CT CT LUMBAR SPINE WO from 01/13/[address] LUMBAR SPINE WO from 01/13/2021 FINDINGS: RIGHT KIDNEY: Measures 10.2 cm in length. No cysts evident. Normal cortical thickness and corticomedullary differen tiation .No solid masses No intrarenal calculi nor hydronephrosis. LEFT KIDNEY: Measures 10.6 cm in length. There is a 2.3 cm cyst in lateral cortex above the midline. Normal kenny ical thickness and corticomedullary differentiaion. No solids masses. No intrarenal calculi nor hydo nephrosis. URINARY BLADDER: Prevoid volume is 337 cc Postvoid volume is 45 cc No evidence of bladder mass nor diverticuli. Ureterovesical jets: Both identified and appear symmetrical IMPRESSION: 1. There is a cyst in the left kidney which measures 2.3 cm diameter, this in the upper half of the kidney. No obvious parapelvic cysts, as described on the recent CT scan of 01/13/2021 2. No other significant ultrasound findings in the kidneys. No hydronephrosis. DATA REPOSITORY:
== END 2021-02-25 02:19 ==
PROVIDERS: PCP Emergency Medicine; Visit Provider Emergency Medicine
DX: N28.89 Other specified disorders of kidney and ureter (principal); N28.1 Cyst of kidney, acquired
CPT/HCPCS: 76770

== ENCOUNTER → 2021-03-27 08:03 | Outpatient (BNVA) | payer MEDICARE, SELFPAY | PROVIDERS: PCP Emergency Medicine; Referring Provider Emergency Medicine; Visit Provider Urology | DX: R39.89 Other symptoms and signs involving the genitourinary system (principal); N39.41 Urge incontinence | CPT/HCPCS: 99213 ==

== ENCOUNTER 2021-07-02 02:21 | Outpatient (CLI) | payer MEDICARE, SELFPAY ==
--- NOTE | 2021-07-02 07:15 | DI.CT_ITS ---
Exam(s) CT CHEST W EXAM: CT CHEST W CLINICAL HISTORY: left perihilar mass on MRI at [facility],R91.8 TECHNIQUE: Imaging Protocol: Axial computed tomography images with coronal and sagittal reformatted images were created and reviewed CONTRAST MATERIAL: Intravenous: Omnipaque 350 Contrast volume:70 mL. COMPARISON: MR MRI - L UPPER JOINT WO CONT from 10/12/2016 CR PORTABLE AP CHEST, POST LINE from 02/04/[address] LUMBAR SPINE WO from 01/13/2021 MR MRI THORACIC SPINE WO CONTRAST from 01/21/2021 MR MRI PO SED NURSE from 06/16/2021 FINDINGS: Tracheobronchial tree: Patent where visualized. Pulmonary parenchyma: There is a nonenhancing 1.5 x 1.6 cm well-circumscribed mass in the left perihi lar region in the left lower lobe. It is homogeneously fat density. Hounsfield units -51. The find ing corresponds to the multiple prior MRIs on which the lesion shows hyperintense signal on both T1 a nd T2 weighted images. 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 Faint ground-glass opacities are seen in the posterior aspect of the right upper lobe. There is a calcified granuloma i n the right lower lobe. Mediastinum and Trinity: No dominant adenopathy or fluid collection. Calcified lymph nodes are seen in t he mediastinum consistent with prior granulomatous disease. Thyroid gland: Unremarkable. Pleura: There is some pleural calcifications present which may represent prior asbestos exposure. No pleural effusion or pneumothorax. Heart: The heart is not dilated. Coronary artery calcifications are present. No pericardial effusion . Aorta: Thoracic aorta non-dilated. Atherosclerosis. Upper abdomen: Calcified granuloma in the spleen. Lymph nodes: No axillary adenopathy. Bones: Within normal limits for the patient's age. Postsurgical changes are seen in the lower thorac ic spine. Soft tissues: Unremarkable. IMPRESSION: 1. 1.5 x 1.6 cm well-circumscribed fat density mass in the left perihilar region of the left lower lo be. This corresponds to the MRI abnormality. The primary diagnostic consideration is pulmonary hama rtoma. Other fat containing masses cannot be entirely excluded. This includes lipoma, or myelolipom a of the lung among other etiologies. 2. Faint ground-glass opacities in the posterior segment of the right upper lobe. This is nonspecifi c. An infectious or inflammatory process cannot be excluded. Please correlate clinically. 3. Findings consistent with prior granulomatous disease. 4. Pleural calcifications which may represent prior asbestos exposure. 5. Postsurgical changes in the lower thoracic spine. RADIATION DOSE DELIVERED: 481.39mGy.cm Total DLP DATA REPOSITORY: All CT scans at this facility are submitted to the National Radiology Data Registry (NRDR) Dose Index Registry (DIR) with the [employer] [place] [employer] (ACR). RADIATION OPTIMIZATION: All CT scans at this facility use at least one of these dose optimization te chniques: automated exposure control; mA and/or kV adjustment per patient size (includes targeted exa ms where dose is matched to clinical indication); or iterative reconstruction.
[2021-07-02] MEDS: Omnipaque 350 MG/ML 100 ML BTL IV (09:26)
== END 2021-07-02 02:41 ==
PROVIDERS: PCP Family Medicine; Visit Provider Emergency Medicine
DX: R91.8 Other nonspecific abnormal finding of lung field (principal); J98.4 Other disorders of lung; J84.10 Pulmonary fibrosis, unspecified
CPT/HCPCS: 71260; J3490

== ENCOUNTER 2021-10-14 13:19 | Outpatient (CLI) | payer MEDICARE, SELFPAY ==
--- NOTE | 2021-10-14 06:00 | DI.RAD_ITS ---
Exam(s) XR PAIN CLINIC LUMBAR SP 2V EXAM: XR PAIN CLINIC LUMBAR SP 2V CLINICAL HISTORY: DX: Lumbar Radiculopathy. TECHNIQUE: Fluoroscopy was provided for the referring physician for guidance with performing pain cl inic injection procedure. COMPARISON: No exams were available for comparison FINDINGS: Please see procedure note for details. Fluoro time: 38.6 seconds RADIATION DOSE DELIVERED: Ka,r= 14.05 mGy
[2021-10-14 13:36] VITALS: BP 112/60; PULSE 60; RESP 20; TEMP 36.9; O2SAT 95
--- NOTE | 2021-10-14 14:12 | PDOC.PAIN_ITS ---
Pain Clinic Procedure Note Procedure Note Procedure Note: LUMBAR / SACRAL TRANSFORAMINAL INJECTION Ovi Caban has been referred to the [facility] for a transforaminal nerve root block and steroid injection. COMMENTS: I previously evaluated him in the office. Pre-procedure pain VAS level was 3/10. Dx: Lumbar radiculopathy Patient was interviewed and the medical record reviewed. There were no medical, pharmacologic, radiographic or other structural contraindications to attempting fluoroscopically guided transforaminal nerve root block and epidural steroid injection. Risks and expected side effects as well as potential benefit of the procedure were reviewed and voiced concerns addressed. The printed consent form was signed and witnessed. Standard time-out procedure was performed. Patient was placed in the prone position on the fluoroscopy table and automated blood pressure cuff and pulse oximeter applied. Fluoroscopy was utilized to identify the left neural foramen between L4 and L5. A skin blayne was made for the needle insertion site. A Chlorhexadine prep was carried out, and sterile drapes were applied. Local anesthesia was achieved in the skin and subcutaneous tissues. A 22 gauge curved tip spinal needle was then inserted, advanced with fluoroscopic guidance into the neural foramen, confirmed on the lateral view. After negative aspiration, 2 ml of Omnipaque 240 was injected confirming position in A/P and lateral views. This showed a good spread of dye transforaminally into the epidural space. There was no vascular update with contrast injection under continuous fluoroscopy and digital substraction. 15 mg of Dexamethasone was injected, followed by 0.5 ml of 1% Xylocaine flush for the nerve root block, as well. There was no unusual discomfort expressed.The needle was withdrawn. The patient tolerated the procedure well. A Band-Aid was applied. Vital signs were stable throughout the procedure and were as recorded in nursing records. If given, dosages of intravenous drugs for anxiolysis and analgesia were documented in nursing records. Follow up plans and appointments were discussed. Post procedure instruction was given as documented in nursing records and patient was discharged in the care of an identified motor pool driver. COMMENTS:Post-procedure pain VAS 3/10. Neal Reyes DO, MPH [facility] CC: Roula Kimball
[2021-10-14 14:23] VITALS: PULSE 59; RESP 18; O2SAT 94
[2021-10-14] MEDS: Omnipaque 240 MG/ML 50 ML BTL IJ (14:29)
[2021-10-14] MEDS: Dexamethasone Sod. Phos./Pres-Free 10 MG/ML VIAL IJ (14:29)
== END 2021-10-14 13:20 | disposition home or self-care (01) ==
LOC: PC 13:19
PROVIDERS: PCP Family Medicine; Visit Provider Preventive Medicine Occupational Medicine
DX: M54.16 Radiculopathy, lumbar region (principal)
CPT/HCPCS: 64483; 72100; Q9967

== ENCOUNTER → 2021-12-21 14:23 | Outpatient (BNVA) | payer MEDICARE, SELFPAY | PROVIDERS: PCP Family Medicine; Referring Provider Family Medicine; Visit Provider Urology | DX: N40.1 Benign prostatic hyperplasia with lower urinary tract symptoms (principal); R39.12 Poor urinary stream; R39.89 Other symptoms and signs involving the genitourinary system | CPT/HCPCS: 51798; 81003; 99214 ==

== ENCOUNTER → 2022-02-10 07:36 | Outpatient (CLI) | payer MEDICARE, SELFPAY ==
--- NOTE | 2022-02-10 08:15 | DI.CT_ITS ---
Exam(s) CT CHEST WO EXAM: CT CHEST WO CLINICAL HISTORY: f/u nodule - likely hamartoma, MASS LT LUNG, R91.8. TECHNIQUE: Imaging protocol: Axial computed tomography images were obtained and coronal and sagittal reformatted images were created and reviewed. COMPARISON: CT CT CHEST W from 07/02/2021 FINDINGS: Tracheobronchial tree: Patent where visualized. Pulmonary parenchyma: There are calcified granulomas in the lungs. There has been no change in size of the 1.5 cm fat density mass in the left lower lobe. 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 No new pulmonary nodules are identified. No focal consolidating infiltrates are seen. Mediastinum and Trinity: No dominant adenopathy or fluid collection. The esophagus is unremarkable.Calci fied lymph nodes are seen in the mediastinum and right hilum consistent with prior granulomatous dise ase. Thyroid gland: Unremarkable. Pleura: No pleural effusion is seen. Pleural calcifications are again noted. No pneumothorax is pre sent. Heart: The heart is not dilated. Mild coronary artery calcification is present. No pericardial effus ion. Aorta: Thoracic aorta non-dilated. Atherosclerosis is present. Upper abdomen: Calcified granuloma are seen in the spleen. There is a 2 mm nonobstructing stone in the midpole of the right kidney. Lymph nodes: No significant axillary adenopathy. Soft tissues: Unremarkable. Bones:Within normal limits for the patient's age. IMPRESSION: 1. 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 2. Stable findings in the chest and upper abdomen. RADIATION DOSE DELIVERED: 535.59mGy.cm Total DLP 535.59mGy.cm Total DLP DATA REPOSITORY: All CT scans at this facility are submitted to the National Radiology Data Registry (NRDR) Dose Index Registry (DIR) with the [employer] (ACR). RADIATION OPTIMIZATION: All CT scans at this facility use at least one of these dose optimization te chniques: automated exposure control; mA and/or kV adjustment per patient size (includes targeted exa ms where dose is matched to clinical indication); or iterative reconstruction.
== END ==
PROVIDERS: PCP Family Medicine; Visit Provider Student in an Organized Health Care Education/Training Program
DX: R91.8 Other nonspecific abnormal finding of lung field (principal)
CPT/HCPCS: 71250

== ENCOUNTER 2022-06-16 10:37 | Outpatient (CLI) | payer MEDICARE, SELFPAY ==
--- NOTE | 2022-06-16 10:30 | RT.EKG_ITS ---
APPROVED REPORT Exam: Resting ECG Reason for Exam: chest discomfort Patient Location: O HR:54 bpm ECG Measurements Heart Rate 54 AXIS ME 186 P 26 QRSd 132 QRS -48 QT 440 T 44 QTc 417 Conclusion Sinus rhythm...normal P axis, V-rate 50- 99 Left ventricular hypertrophy...multiple LVH criteria
== END 2022-06-16 10:38 | disposition home or self-care (01) ==
PROVIDERS: PCP Family Medicine; Visit Provider Family Medicine
DX: R07.89 Other chest pain (principal); Z86.69 Personal history of other diseases of the nervous system and sense organs; Z91.81 History of falling
CPT/HCPCS: 93010

== ENCOUNTER 2022-09-16 10:50 | Outpatient (RCR) | payer MEDICARE, SELFPAY ==
--- NOTE | 2022-09-16 11:00 | HOLTER_ITS ---
APPROVED REPORT Conclusion This is a 48-hour Holter monitor Rhythm throughout is sinus with an average heart rate of 71. Minimum was 50, maximum 142 There were rare atrial premature beats There were occasional ventricular ectopic beats There was no atrial fibrillation, no SVT, no high-grade AV block, no pauses greater than 3 seconds No patient symptoms were reported
== END 2022-10-03 23:59 | disposition home or self-care (01) ==
LOC: CARDOPNVT 10:50
PROVIDERS: PCP Family Medicine; Visit Provider Family Medicine
DX: G45.9 Transient cerebral ischemic attack, unspecified (principal); I49.3 Ventricular premature depolarization
CPT/HCPCS: 93227; 93225; 93226

== ENCOUNTER 2022-10-19 15:37 | Outpatient (REF) | payer MEDICARE, SELFPAY ==
[2022-10-19 14:16] LABS: COMMENT (LAB VIEW ONLY) 49.87 mg/dL; Microalb ug/mg Crea 17.6 ug/mg Cr
== END 2022-10-19 15:38 | disposition home or self-care (01) ==
LOC: LBN 15:37
PROVIDERS: PCP Family Medicine; Visit Provider Family Medicine
DX: E11.42 Type 2 diabetes mellitus with diabetic polyneuropathy (principal); Z79.4 Long term (current) use of insulin
CPT/HCPCS: 82043; 82570

== ENCOUNTER 2022-12-14 02:15 | Outpatient (CLI) | payer MEDICARE, SELFPAY ==
--- NOTE | 2022-12-14 10:30 | DI.US_ITS ---
APPROVED REPORT EXAM: Comprehensive 2D, Doppler, and color-flow Echocardiogram Patient Location: Out-Patient Candy Catcher: Tone Hunt RDMS, RVT Indications: recent TIA, cardiac murmur Other Information Study Quality: Adequate Conclusion The left ventricular wall thickness and chamber size. Ejection fraction is 55%. Wall motion is norm al Normal right ventricular size and systolic function The left atrium is moderately dilated. Right atrium is normal in size Trileaflet aortic valve without stenosis or regurgitation Normal mitral valve with moderate central regurgitation Normal tricuspid valve with mild regurgitation. Estimated right ventricular systolic pressure is 25 mmHg Ascending aorta measures 3.54 cm Wall motion Left Ventricle The left ventricle is normal size. The left ventricular systolic function is normal. The left ventric ular ejection fraction is within the normal range. There is normal left ventricular wall thickness. T here is normal LV segmental wall motion. There is no ventricular septal defect visualized. LVEF is 55 %. Right Ventricle The right ventricle is normal size. The right ventricular systolic function is normal. The RVSP is 25 .5 mmHg.. Atria Left atrium is moderately dilated. Right atrium is normal Aortic Valve The aortic valve is normal in structure. Aortic valve is trileaflet. There is no aortic valvular sten osis. No aortic regurgitation is present. Mitral Valve The mitral valve is normal in structure. No evidence of mitral valve stenosis. Moderate mitral regurg itation. Tricuspid Valve The tricuspid valve is normal in structure. There is no tricuspid valve stenosis. Mild tricuspid regu rgitation Pulmonic Valve The pulmonary valve is normal in structure. There is no pulmonic valvular stenosis. Trace pulmonic re gurgitation. Great Vessels The aortic root is normal in size. Ascending aorta is borderline normal in caliber. Aortic arch is no t well visualized. IVC is normal in size and collapses >50% with inspiration. Pericardium There is no pericardial effusion. 2D Dimensions IVSD d PLAX 0.63 cm M: 0.6-1.2 LV Vol A2C d MOD 129.3 mL LVPW d PLAX 0.62 cm M: 0.6 - 1.2 LV Vol A4C d MOD 132.1 mL LVID d PLAX 5.51 cm M: 4.2 - 5.8 LA vol/ BSA A4C s A-L 50.3 mL/m2 LVDs 3.80 cm M: 2.5 - 4.0 LA Area A4C s MOD 28.44 cm2 Ao Root d 3.71 cm M: 3.1 - 3.7 LV EF A4C MOD 52.9 % Ao Asc Diam d 3.54 cm M: 2.6 - 3.4 LV EF A2C MOD 54.8 % LV EF Teichholz 58.0 % LV EF Biplane MOD 54.1 % LVEF (Merchant's) 54.14 % M: 52 - 72 SV 72.06 mL LV Volume 97.78 mL M: 62 - 150 SV Index 33.83 mL/m2 LV Volume Index 45.90 mL/m2 M: 34 - 74 LV Vol Biplane MOD 133.1 mL FS 30.90 % M-Mode TAPSE 2.39 cm (M/F) >1.7 LV Diastology MV E' medial 0.081 (>0.07 m/s) E/A Ratio 1.3 LV E/e MED 10.65 (<14) MV E Vmax 0.86 (0.4-1.3 m/s) MV E' lateral 0.098 (>0.1 m/s) MV A Vmax 0.65 (0.4-1.3 m/s) LV E/e LAT 8.80 (<14) MV E/A Ratio 1.26 MV E/E' medial 10.67 MV E/E' lateral 8.80 Aortic Valve LVOT Area 3.98 cm2 AoV Area Vmax 3.25 cm2 LVOT Vmax 0.73 m/s AoV Area/ BSA (Vmax) 1.53 cm2/m2 LVOT Mean Claus. 0.51 m/s DAMIEN Mean Claus. 3.28 cm2 LVOT Peak Grad 2.1 mmHg DAMIEN Mean Claus. Index 1.54 cm2/m2 LVOT Mean Grad 1.2 mmHg LVOT VTI 0.191 m LVOT Diam s 2.25 cm AoV Vmax 0.89 m/s Velocity Ratio 0.82 AoV Mean Claus. 0.62 m/s AoV Peak Grad 3.2 mmHg LVOT SV 75.86 mL AoV Mean Grad 1.8 mmHg AoV VTI 0.201 m AoV Area VTI 3.77 cm2 AoV Area/ BSA (VTI) 1.77 cm/m2 Mitral Valve MV DT 178 (160-240 msec) MR PISA Radius 0.44 cm MV PHT 52 msec MR Aliasing Velocity 0.35 m/s MV Area PHT 4.26 cm2 MR PISA 1.20 cm2 MV VTI 0.181 m MV Area VTI 4.19 (4.0-6.0 cm2) Pulmonary Valve PV Vmax 0.81 (0.5-1.5 m/s) RVOT Peak Gr. 1.42 mmHg PV Peak Grad 2.6 mmHg RVOT Mean Gr. 0.80 mmHg PV Mean Grad 1.6 mmHg RVOT VTI 0.139 m PV VTI 0.194 m RVOT Vmax 0.60 m/s Tricuspid Valve TR Peak Grad 22.4 mmHg TR Vmax 2.37 m/s RA Pressure 3.00 mmHg RVSP (TR) 25.5 mmHg
== END 2022-12-14 02:35 ==
LOC: DI 02:15
PROVIDERS: PCP Family Medicine; Visit Provider Family Medicine
DX: R01.1 Cardiac murmur, unspecified (principal); Z86.73 Personal history of transient ischemic attack (TIA), and cerebral infarction without residual deficits
CPT/HCPCS: 93306

== ENCOUNTER → 2022-12-21 10:25 | Outpatient (BNVA) | payer MEDICARE, SELFPAY | PROVIDERS: PCP Family Medicine; Referring Provider Family Medicine; Visit Provider Urology | DX: N40.1 Benign prostatic hyperplasia with lower urinary tract symptoms (principal); R39.89 Other symptoms and signs involving the genitourinary system | CPT/HCPCS: 51798; 81003; 99214 ==

== ENCOUNTER 2023-04-15 06:15 | Day surgery (SDC) | payer MEDICARE, SELFPAY ==
[2023-04-15 06:30] VITALS: BP 137/78; PULSE 57; RESP 18; TEMP 36.3; O2SAT 97
[2023-04-15] MEDS: Tropicam./Phenyleph. (1/2.5%) 5 ML BTL OS ×3 (06:50→07:00)
[2023-04-15 07:25] VITALS: BMI 29.2
--- NOTE | 2023-04-15 07:25 | ANES.PREOP_ITS ---
General Info Date of Service Date Performed: 04/15/23 Height: 6 ft Weight: 98 kg Body Mass Index (BMI): 29.2 Surgical Procedure: Operation Date: 04/15/23 07:40 Proposed Procedure Side Surgeon p Cataract Extraction with IOL Implant Left Anoop Perry MD Actual Procedure Side Surgeon p Cataract Extraction with IOL Implant Left Anoop Perry MD Pre-Op Diagnosis Post-Op Diagnosis left eye cataract left eye cataract Meds Allergies and Home Medications Allergies Allergy/AdvReac Type Severity Reaction Status Date / Time atorvastatin AdvReac Mild muscle/joint Verified 04/13/23 10:52 aches pravastatin AdvReac Mild muscle/joint Verified 04/13/23 10:52 aches simvastatin AdvReac Mild muscle/joint Verified 04/13/23 10:52 aches Home Medication Medication Instructions Recorded folic acid 1 mg tablet 1 mg PO DAILY 03/11/15 acetaminophen 500 mg tablet 1,000 mg PO PRN 09/01/21 (Masophen) diabetic shoes #1 ea 12/04/21 ibuprofen 800 mg tablet 800 mg PO BID PRN pain #180 tabs 12/04/21 metformin 500 mg tablet 1,000 mg PO BID 12/04/21 methotrexate sodium 2.5 mg tablet 15 mg PO WEEKLY 12/04/21 cyanocobalamin (vitamin B-12) 1,000 mcg PO DAILY 02/26/22 1,000 mcg capsule ergocalciferol (vitamin D2) 50 mcg 100 mcg PO DAILY 02/26/22 (2,000 unit) capsule insulin aspart U-100 100 unit/mL See Rx Instructions subcut .COMPLEX 02/26/22 (3 mL) subcutaneous pen (Novolog FlexPen U-100 Insulin aspart) multivitamin 1 tab PO DAILY 02/26/22 aspirin 325 mg tablet 325 mg PO DAILY 09/03/22 empagliflozin 25 mg tablet 25 mg PO DAILY 09/03/22 (Jardiance) insulin detemir U-100 100 unit/mL 18 unit subcut BID 09/03/22 (3 mL) subcutaneous pen (Levemir FlexTouch U-100 Insulin) omeprazole 20 mg capsule,delayed 20 mg PO DAILY #90 tab-caps 10/11/22 release rosuvastatin 10 mg tablet 10 mg PO DAILY #90 tab-caps 11/02/22 hydroxyzine HCl 25 mg tablet 25 mg PO daily prn #30 tabs 12/15/22 triamcinolone acetonide 0.1 % 1 applic topical BID PRN rash #80 12/15/22 topical cream grams alfuzosin 10 mg tablet,extended 10 mg PO DAILY #90 tabs 01/04/23 release 24 hr (Uroxatral) losartan 25 mg tablet 25 mg PO DAILY #90 tab-caps 01/12/23 gabapentin 300 mg capsule 300 mg PO DAILY 03/23/23 mirtazapine 30 mg tablet 45 mg (1.5 x 30 mg) PO QHS #90 tabs 03/23/23 Current Visit Medications: Current Medications Generic Name Dose Route Start Last Admin Trade Name Freq PRN Reason Stop Dose Admin Acetaminophen 1,000 mg 04/15/23 06:00 Acetaminophen 500 Mg Tab PO 05/15/23 05:59 Q4H PRN PRN Balanced Salt Solution 500 ml 04/15/23 06:00 Balanced Salt Soln.-Plus 500 Ml Bag OP 05/15/23 05:59 DIRECTED [facility] Miscellaneous Medication 0 ml 04/15/23 06:00 Prednisolone 1%, Moxifloxacin 0.5%, Nepafenac 0.1% 5ml Btl OS 05/15/23 05:59 DIRECTED [facility] Miscellaneous Medication 0 ml 04/15/23 06:00 04/15/23 07:00 Tropicam./Phenyleph. (1/2.5%) 5 Ml Btl OS 05/15/23 05:59 1 drp DIRECTED [facility] Administration Tetracaine HCl 0 ml 04/15/23 06:00 Tetracaine 0.5% 4 Ml Btl OS 05/15/23 05:59 DIRECTED [facility] LAT[facility] PFSH Active Problems Active Problems: Problem Status Onset Code Cortical age-related cataract, left eye H25.012 Nuclear age-related cataract, left eye H25.12 Benign prostatic hyperplasia N40.0 Hyperlipidemia E78.5 Psoriasis L40.9 Type 2 diabetes mellitus with diabetic polyneuropathy, with long-term current use of insulin 11/10/16 E11.42, Z79.4 History of peripheral neuropathy Z86.69 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 Depression F32.9 Hamartoma of left lung Q85.9 Pleural plaque J92.9 Risk for falls Z91.81 Chronic pain syndrome G89.4 Septic arthritis of knee, left M00.9 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 Zamudio [facility] [place] Status post total left knee replacement (01/14/17) Tobacco Smoking/Tobacco Use Status: Former Tobacco Use Passive smoking exposure: Yes Alcohol Alcohol Intake: current Alcohol intake frequency: 0-2 drinks per day Alcohol type: hard liquor Details: 1 drink a night Substance Use Substance use: Rarely Substance use type: marijuana Details: Cannabis-used for pain management at . Vital Signs and Lab Results Vital Signs Most Recent Vital Signs in EMR: Most Recent Vital Signs Temp Pulse Resp BP Pulse Ox 36.3 C L 57 L 18 137/78 97 04/15/23 06:30 04/15/23 06:30 04/15/23 06:30 04/15/23 06:30 04/15/23 06:30 Point of Care Results Point of Care Results: Finger Stick Blood Glucose 154 04/15/23 07:06 Lab Results Blood Type / Crossmatch: No Data to Display Complete Blood Count: No Data to Display Complete Metabolic Panel: No Data to Display Liver Function Panel: No Data to Display Coagulation Panel: No Data to Display Cardiac Panel: No Data to Display Arterial Blood Gas: No Data to Display Venous Blood Gas: No Data to Display Pancreas Panel: No Data to Display Thyroid Panel: No Data to Display Infectious Disease: No Data to Display Blood Cultures: No Data to Display Toxicology Panel: No Data to Display Anesthesia Assessment and Plan Anesthesia History Personal History: No History of Anesthesia Complications Family History: No Family History of Anesthesia Complications Exercise Tolerance Exercise Tolerance: Metabolic Equivalents>4 Pertinent Negatives Pertinent Negatives: No Symptoms of GERD Cardiac & Pulmonary Exam Cardiac Exam: Normal S1/S2 Heart Sounds Pulmonary Exam: Clear Bilateral Breath Sounds Implantable Cardiac Device Does patient have a Pacemaker or an ICD?: No Airway Exam Known Difficult Airway: No Mallampati Class: 2 Mouth Opening: Normal (> 3cm) Thyromental Distance: Greater than 3 cm Neck Range of Motion: Full ROM Neck Circumference: Normal Teeth Condition: Normal Dentition ASA Classification ASA Score: ASA 2 Emergency Case?: No NPO Status NPO Status: NPO Clears >2 hours, Solids >8 hours Anesthesia Plan Resuscitation Status: Full Code Anesthesia Technique: MAC Anesthesia Airway Planned: Natural Airway Monitors Used: Standard Monitors
[2023-04-15] MEDS: Tetracaine 0.5% 4 ML BTL OS (07:30)
[2023-04-15] MEDS: Povidone-Iodine Ophth 30 ML BTL (07:30)
[2023-04-15] MEDS: Lidocaine 1% Pres-Free 5 ML VIAL (07:34)
[2023-04-15] MEDS: Phenylephrine/Lidocaine (15/10) MG/ML 1 ML VIAL (07:34)
[2023-04-15] MEDS: Balanced Salt Soln.-PLUS 500 ML BAG OP (07:34)
[2023-04-15] MEDS: Duovisc Viscoelastic System EACH 1 EACH (07:34)
[2023-04-15 08:00] VITALS: BP 144/72; PULSE 57; RESP 16; TEMP 36.3; O2SAT 98
--- NOTE | 2023-04-15 08:01 | W.PM.DSUDISC ---
Date of service: 04/15/23 Time of Service: 08:01 Discharge Plan Disposition Patient Disposition: Home Discharge Details Attending Provider: Anoop Perry Primary Care Provider: Roula Kimball Home Meds and New Rx's Prescriptions: No Action acetaminophen [Masophen] 500 mg tablet 1,000 mg PO PRN Patient Comments: 05/19/18 takes prn. ramon insulin aspart U-100 [Novolog FlexPen U-100 Insulin] 100 unit/mL (3 mL) insulin pen See Rx Instructions subcut .COMPLEX Rx Instructions: subcutaneously per sliding scale; prn per SS-endocrine multivitamin Tablet 1 tab PO DAILY ergocalciferol (vitamin D2) 50 mcg (2,000 unit) capsule 100 mcg PO DAILY cyanocobalamin (vitamin B-12) 1,000 mcg capsule 1,000 mcg PO DAILY metformin 500 mg tablet 1,000 mg PO BID ibuprofen 800 mg tablet 800 mg PO BID PRN (Reason: pain) Qty: 180 3RF (DME) diabetic shoes See Rx Instructions .Route .MEDSUPPLY Qty: 1 0RF Rx Instructions: As directed - custom molded 1 pair. Jardiance 25 mg tablet 25 mg PO DAILY Levemir FlexTouch U100 Insulin 100 unit/mL (3 mL) insulin pen 18 unit subcut BID aspirin 325 mg tablet 325 mg PO DAILY gabapentin 300 mg capsule 300 mg PO DAILY mirtazapine 30 mg tablet 45 mg PO QHS Qty: 90 3RF hydroxyzine HCl 25 mg tablet 25 mg PO daily prn Qty: 30 3RF triamcinolone acetonide 0.1 % cream 1 applic topical BID PRN (Reason: rash) Qty: 80 0RF ONE TOUCH ULTRA 1 EACH EACH 1 ea Miscellaneous AC Qty: 270 3RF Rx Instructions: 250.01; 3 times daily testing ONE TOUCH LANCETS 1 EACH EACH 1 ea Miscellaneous BID Qty: 180 3RF folic acid 1 MG tablet 1 mg PO DAILY Patient Comments: 03/11/[address] DICKEY. methotrexate sodium 2.5 mg tablet 15 mg PO WEEKLY Patient Comments: omeprazole 20 mg capsule,delayed release(/EC) 20 mg PO DAILY Qty: 90 3RF rosuvastatin 10 mg tablet 10 mg PO DAILY Qty: 90 3RF alfuzosin [Uroxatral] 10 mg tablet extended release 24 hr 10 mg PO DAILY Qty: 90 4RF Rx Instructions: administer after the same meal each day losartan 25 mg tablet 25 mg PO DAILY Qty: 90 3RF Discharge Instructions Stand Alone Forms: Post-op Topical Cataract, Amalia Jimenez (DSU) Discharge Orders Discharge Orders: Discharge Order (Routine); Ordered 04/15/23 Ordered By: Anoop Perry DS: Diagnosis Discharge Diagnosis (1) Cortical age-related cataract, left eye: Status: Resolved (2) Nuclear age-related cataract, left eye: Status: Resolved
--- NOTE | 2023-04-15 08:02 | ROE_ITS ---
Date of service: 04/15/23 Time of Service: 08:02 Operative Note Operative Note DATE OF PROCEDURE: 04/15/23 PRE-OP DIAGNOSIS: Nuclear/cortical cataract, left eye Poorly dilating pupil, left eye POST-OP DIAGNOSIS: same PROCEDURE: Cataract extraction using phacoemulsification with intraocular lens implant, left eye SURGEON: Anoop Perry ANESTHESIA TYPE: Local By Surgeon and MAC Refer to Anesthesia Record PATHOLOGY: none sent COMPLICATIONS: None Patient was transported to: same day Patient's condition: stable Implants: Jamaal Clareon [id number] Indications: Progressive decreased vision due to cataract, left eye Procedure Description: CATARACT SURGERY OPERATIVE REPORT PREOPERATIVE DIAGNOSIS: Nuclear/cortical cataract, left eye Poorly dilating pupil, left eye POSTOPERATIVE DIAGNOSIS: Same OPERATION: Cataract extraction using phacoemulsification with posterior chamber intraocular lens implant, left eye. Pupillary dilation and iris stabilization with 6.25 mm Malyugin ring IOL: IOL Rattling Machine Tender/Model: Jamaal Clareon [id number] IOL Power: + 29.5 diopters IOL Serial Number: [id number] Optic Diameter: 6.0mm Haptic/Overall Diameter: 13.0mm PHACO INFO: Jamaal Aesica Pharmaceuticalsurion Vision System with OZil and Active Fluidics Cumulative Dispersed Energy (CDE): 14.86 seconds SURGEON: Anoop Perry MD, ROLAND ANESTHESIA: Monitored Anesthesia Care (MAC), with local sub-tenon's anesthetic infiltration COMPLICATIONS: None SPECIMENS: None INDICATIONS FOR PROCEDURE: The patient is a 77-year-old male with history of very high hyperopia who has developed a symptomatic nuclear/cortical cataract in the left eye. He is significantly symptomatic that he desires cataract surgery and attempt to improve and maximize his vision. See office notes for detailed information. PROCEDURE: The correct surgical eye was identified and marked as the left eye and the pupil was dilated in the preoperative area using mydriatics and cycloplegics. The dilated pupil size was 4.0 mm. The patient elected to proceed without oral sedation. The patient was brought to the operating room where cardiopulmonary monitoring was instituted and surgical time-out was performed, confirming the correct operative eye and IOL power. Topical anesthesia was administered and ophthalmic povidone-iodine 5% was instilled into the conjunctival fornices. The ele-ocular area was prepped with Betadine 10% solution and draped in the usual sterile fashion for intraocular surgery, including an aperture drape. A Tegaderm transparent film dressing was cut in half and used to cover the lashes and lid margins. Care was taken to sequester the lashes and lid margins under the Tegaderm dressing. A lid speculum was placed between the lids of the operative eye and the Jamaal LuxOR Revalia operating microscope was maneuvered into position. Jay scissors were then used to make a conjunctival buttonhole approximately 6mm posterior to the limbus in the inferonasal quadrant. Blunt dissection was carried out to expose bare sclera, and a blunt-tipped sub-tenon?s anesthesia cannula was introduced and passed posteriorly along the globe where non- preserved plain lidocaine was injected into posterior sub-Tenon?s space. A sideport knife was used to make a paracentesis port. Intraocular phenylephrine/lidocaine was injected into the anterior chamber. The anterior chamber was then filled with viscoelastic. Dispersive viscoelastic was used initially to deepen the anterior chamber due to the shallow chamber/short axial length. A keratome knife was used construct a two-plane clear corneal tunnel extending 2.0mm into clear cornea. A 6.25 mm pupillary expansion device was inserted into the pupillary space and engaged with a Kuglen hook. A flap was raised on the anterior capsule and capsulorhexis forceps were used to complete a continuous curvilinear capsulorhexis of 5.0 mm. Balanced salt solution was then used to perform cortical cleaving hydrodissection and nuclear hydrodelineation until the lens could be freely rotated within the capsular bag. The lens nucleus was then disassembled and removed within the capsular bag and iris plane using phacoemulsification. Residual cortical material was removed using the irrigation/aspiration handpiece. The posterior capsule was carefully polished to remove as much residual lens epithelial cells as safely possible. The capsular bag was then inflated and the anterior chamber deepened with viscoelastic. The lens implant described above was inserted into the capsular bag using the Jamaal Autonome Injector. A Kuglen hook was used to dial the IOL into position. The pupil expansion device was then removed in the reverse order of its insertion. Residual viscoelastic was then removed first from posterior to the IOL, then from the anterior chamber using the I/A handpiece. The lens implant was noted to center nicely within the capsular bag. The incisions were stromally hydrated, and the anterior chamber was reformed using BSS. Then 0.5cc of moxifloxacin 1.0mg/ml were injected into the capsular bag and anterior chamber. The incisions were checked with a Weck spear and found to be secure. Several drops of ophthalmic povidone-iodine 5% were then applied to the eye followed by two drops of Imprimis combination prednisolone/moxifloxacin/nepafenac solution. The drapes were removed and a clear plastic protective eye shield was placed over the eye. The patient was then returned to Same Day Surgery in stable condition.
--- NOTE | 2023-04-15 08:11 | W.ANESPOSTOP ---
Postoperative Evaluation Date, Time and Location Date Performed: 04/15/23 Time Performed: 08:11 Patient Location: Day Surgery Unit Vital Signs Most Recent Imported Vital Signs: Most Recent Vital Signs Temp Pulse Resp BP Pulse Ox 36.3 C L 57 L 16 144/72 H 98 04/15/23 08:00 04/15/23 08:00 04/15/23 08:00 04/15/23 08:00 04/15/23 08:00 Pain Score Most Recent Pain Score: Most Recent Pain Score Pain Level 0 04/15/23 08:00 Assessment Mental Status: Awake (Alert & Oriented to Patient Baseline) Airway and Respiratory Function: Patent airway with normal (patient baseline) respiratory exam Cardiovascular Function: Hemodynamically Stable Hydration Status: Adequately Hydrated Nausea & Vomiting: No Nausea or Vomiting Pain: Pt. Denies Any Pain Peripheral Nerve Block: Patient did not receive a nerve block
== END 2023-04-15 08:24 | disposition home or self-care (01) ==
LOC: SUR 07:11
PROVIDERS: PCP Family Medicine; Visit Provider Ophthalmology
PROC: (CPT 66982; principal; 2023-04-15 07:30)
DX: H25.012 Cortical age-related cataract, left eye (principal); H25.12 Age-related nuclear cataract, left eye; E11.42 Type 2 diabetes mellitus with diabetic polyneuropathy; F33.1 Major depressive disorder, recurrent, moderate
CPT/HCPCS: 66982; 00123; V2632

== ENCOUNTER 2023-05-20 06:58 | Day surgery (SDC) | payer MEDICARE, SELFPAY ==
--- NOTE | 2023-05-20 06:38 | W.PREOPHP ---
Assessment and Plan Assessment and plan (1) Cortical age-related cataract, right eye: Status: Acute Assessment and plan: Assessment: Visually significant cataract of the right eye. Plan: Cataract extraction with lens implantation of the right eye. (2) Nuclear age-related cataract, right eye: Status: Acute Assessment and plan: Assessment: Visually significant cataract of the right eye. Plan: Cataract extraction with lens implantation of the right eye. History of Present Illness History of Present Illness Chief Complaint: Progressive decreased vision, right eye Narrative: The patient is a 77-year-old male with history of high hyperopia, left eye greater than right. He has worn glasses since age 8, currently wearing contact lenses. He notes progressive decreased vision in both eyes at both distance and near and has significant difficulty with glare driving at night and can no longer read road signs. On examination he was noted to have moderate bilateral cataract. He was significantly symptomatic that he desired cataract surgery, and underwent surgery OS on 04/15/2023. He is doing well postoperatively, now presents for cataract surgery OD. He has significant anisometropia now that the right eye is a +6 hyperopia, and the left eye is [place]. Review of Systems All systems reviewed & are unremarkable except as noted in HPI and below PFSH All Active Problems Cortical age-related cataract, right eye (Acute) Nuclear age-related cataract, right eye (Acute) Benign prostatic hyperplasia (Chronic) Hyperlipidemia (Chronic) Psoriasis (Chronic) Type 2 diabetes mellitus with diabetic polyneuropathy, with long-term current use of insulin (Chronic 11/10/16) Insulin requiring, followed by endocrine at [facility] History of peripheral neuropathy (Chronic) Involving lower extremities, associated with Charcot foot 08/2021 advanced decreased sensation of distal foot Neuropathy genetic testing negative 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 Hx of transient ischemic attack (TIA) (Acute 08/2022) 15 minutes vision loss Word finding difficulty (Acute) Moderate mitral regurgitation by prior echocardiogram (Acute 12/2022) with mild increase in LA. Negative holter monitor in 09/2022 Thoracic myelopathy (Acute) Undergoing evaluation with [facility] [place] Medical History Mass of left lung Left kidney mass [id number] left renal cyst Synovial cyst of lumbar facet joint (12/26/17) Regular astigmatism (07/31/12) NPDR (nonproliferative diabetic retinopathy) 01/29/15 MILD; DR. 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 Zamudio [facility] [place] Status post total left knee replacement (01/14/17) Family History Mother Alcohol abuse Depression Heart disease Father Alcohol abuse Brother Diabetes Brother Depression Social History Smoking/Tobacco Use Status: Former Tobacco Use Quit Date: 06/06/72 Tobacco: How many years used: 6 Smoking risk assessment performed?: Yes Alcohol Intake: current Alcohol Intake frequency: 0-2 drinks per day Alcohol type: hard liquor Details: 1 drink a night Drug use: Rarely Substance use type: marijuana Details: Cannabis-used for pain management at [facility]. 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 as of 04/13/23 Meds Allergies and Home Medications Allergies Allergy/AdvReac Type Severity Reaction Status Date / Time atorvastatin AdvReac Mild muscle/joint Verified 05/18/23 11:38 aches pravastatin AdvReac Mild muscle/joint Verified 05/18/23 11:38 aches simvastatin AdvReac Mild muscle/joint Verified 05/18/23 11:38 aches Home Medications Medication Instructions Recorded Confirmed Type One Touch Ultra 1 ea miscellaneous AC #270 ea 04/25/14 05/18/23 Clinic One Touch Lancets 1 ea miscellaneous BID #180 ea 08/27/14 05/18/23 Clinic folic acid 1 mg tablet 1 mg PO DAILY 03/11/15 05/20/23 History acetaminophen 500 mg tablet 1,000 mg PO PRN 09/01/21 05/20/23 History (Masophen) diabetic shoes #1 ea 12/04/21 05/04/23 Rx metformin 500 mg tablet 1,000 mg PO BID 12/04/21 05/20/23 History methotrexate sodium 2.5 mg tablet 15 mg PO WEEKLY 12/04/21 05/20/23 History cyanocobalamin (vitamin B-12) 1,000 mcg PO DAILY 02/26/22 05/20/23 History 1,000 mcg capsule ergocalciferol (vitamin D2) 50 mcg 100 mcg PO DAILY 02/26/22 05/20/23 History (2,000 unit) capsule insulin aspart U-100 100 unit/mL See Rx Instructions subcut .COMPLEX 02/26/22 05/20/23 History (3 mL) subcutaneous pen (Novolog FlexPen U-100 Insulin aspart) multivitamin 1 tab PO DAILY 02/26/22 05/20/23 History aspirin 325 mg tablet 325 mg PO DAILY 09/03/22 05/20/23 History empagliflozin 25 mg tablet 25 mg PO DAILY 09/03/22 05/20/23 History (Jardiance) insulin detemir U-100 100 unit/mL 18 unit subcut BID 09/03/22 05/20/23 History (3 mL) subcutaneous pen (Levemir FlexTouch U-100 Insulin) omeprazole 20 mg capsule,delayed 20 mg PO DAILY #90 tab-caps 10/11/22 05/20/23 Rx release rosuvastatin 10 mg tablet 10 mg PO DAILY #90 tab-caps 11/02/22 05/20/23 Rx triamcinolone acetonide 0.1 % 1 applic topical BID PRN rash #80 12/15/22 05/20/23 Rx topical cream grams losartan 25 mg tablet 25 mg PO DAILY #90 tab-caps 01/12/23 05/20/23 Rx mirtazapine 30 mg tablet 45 mg (1.5 x 30 mg) PO QHS #90 tabs 03/23/23 05/20/23 Rx gabapentin 300 mg capsule 600 mg PO Q8H 05/04/23 05/20/23 History hydroxyzine HCl 25 mg tablet 25 mg PO daily prn #90 tabs 05/04/23 05/20/23 Rx ibuprofen 800 mg tablet 800 mg PO BID PRN pain #180 tabs 05/16/23 05/20/23 Rx Exam Eyes Other: Most recent ocular examination is significant for corrected visual acuity of 20/70 OD, 20/125 OS. Extract motility is normal. Intraocular pressure is 9 OU. Slit-lamp examination is significant for narrow anterior chamber angles with pupils dilating only to 4 mm. In the right eye there is mild cortical with moderate nuclear cataract. The left eye has a well-positioned PCIOL with clear posterior capsule. Funduscopic examination reveals disc cupping of 0.35 OU with normal vessels, macula, peripheral retina and vitreous. Resp Auscultation: clear to auscultation bilaterally Cardio Rate: regular rate Rhythm: regular rhythm
[2023-05-20 07:10] VITALS: BP 125/68; PULSE 54; RESP 16; TEMP 36; O2SAT 93
[2023-05-20] MEDS: Tropicam./Phenyleph. (1/2.5%) 5 ML BTL OD ×3 (07:18→07:33)
--- NOTE | 2023-05-20 07:43 | W.ANESPRE ---
General Info Date of Service Date Performed: 05/20/23 Height: 6 ft Weight: 965 kg Body Mass Index (BMI): 288.4 Surgical Procedure: Operation Date: 05/20/23 08:25 Proposed Procedure Side Surgeon p Cataract Extraction with IOL Implant Right Anoop Perry MD Meds Allergies and Home Medications Allergies Allergy/AdvReac Type Severity Reaction Status Date / Time atorvastatin AdvReac Mild muscle/joint Verified 05/18/23 11:38 aches pravastatin AdvReac Mild muscle/joint Verified 05/18/23 11:38 aches simvastatin AdvReac Mild muscle/joint Verified 05/18/23 11:38 aches Home Medication Medication Instructions Recorded folic acid 1 mg tablet 1 mg PO DAILY 03/11/15 acetaminophen 500 mg tablet 1,000 mg PO PRN 09/01/21 (Masophen) diabetic shoes #1 ea 12/04/21 metformin 500 mg tablet 1,000 mg PO BID 12/04/21 methotrexate sodium 2.5 mg tablet 15 mg PO WEEKLY 12/04/21 cyanocobalamin (vitamin B-12) 1,000 mcg PO DAILY 02/26/22 1,000 mcg capsule ergocalciferol (vitamin D2) 50 mcg 100 mcg PO DAILY 02/26/22 (2,000 unit) capsule insulin aspart U-100 100 unit/mL See Rx Instructions subcut .COMPLEX 02/26/22 (3 mL) subcutaneous pen (Novolog FlexPen U-100 Insulin aspart) multivitamin 1 tab PO DAILY 02/26/22 aspirin 325 mg tablet 325 mg PO DAILY 09/03/22 empagliflozin 25 mg tablet 25 mg PO DAILY 09/03/22 (Jardiance) insulin detemir U-100 100 unit/mL 18 unit subcut BID 09/03/22 (3 mL) subcutaneous pen (Levemir FlexTouch U-100 Insulin) omeprazole 20 mg capsule,delayed 20 mg PO DAILY #90 tab-caps 10/11/22 release rosuvastatin 10 mg tablet 10 mg PO DAILY #90 tab-caps 11/02/22 triamcinolone acetonide 0.1 % 1 applic topical BID PRN rash #80 12/15/22 topical cream grams losartan 25 mg tablet 25 mg PO DAILY #90 tab-caps 01/12/23 mirtazapine 30 mg tablet 45 mg (1.5 x 30 mg) PO QHS #90 tabs 03/23/23 gabapentin 300 mg capsule 600 mg PO Q8H 05/04/23 hydroxyzine HCl 25 mg tablet 25 mg PO daily prn #90 tabs 05/04/23 ibuprofen 800 mg tablet 800 mg PO BID PRN pain #180 tabs 05/16/23 Current Visit Medications: Current Medications Generic Name Dose Route Start Last Admin Trade Name Gaganq PRN Reason Stop Dose Admin Acetaminophen 1,000 mg 05/20/23 06:00 Acetaminophen 500 Mg Tab PO 06/19/23 05:59 Q4H PRN PRN Balanced Salt Solution 500 ml 05/20/23 06:00 Balanced Salt Soln.-Plus 500 Ml Bag OP 06/19/23 05:59 DIRECTED MIRI Miscellaneous Medication 0 ml 05/20/23 06:00 05/20/23 07:33 Tropicam./Phenyleph. (1/2.5%) 5 Ml Btl OD 06/19/23 05:59 1 drp DIRECTED MIRI Administration Miscellaneous Medication 0 ml 05/20/23 06:00 Prednisolone 1%, Moxifloxacin 0.5%, Bromfenac 0.09% 5ml Btl OD 06/19/23 05:59 DIRECTED MIRI Tetracaine HCl 0 ml 05/20/23 06:00 Tetracaine 0.5% 4 Ml Btl OD 06/19/23 05:59 DIRECTED MIRI PFSH Active Problems Active Problems: Problem Status Onset Code Cortical age-related cataract, right eye H25.011 Nuclear age-related cataract, right eye H25.11 Benign prostatic hyperplasia N40.0 Hyperlipidemia E78.5 Psoriasis L40.9 Type 2 diabetes mellitus with diabetic polyneuropathy, with long-term current use of insulin 11/10/16 E11.42, Z79.4 History of peripheral neuropathy Z86.69 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 Depression F32.9 Hamartoma of left lung 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 Pleural plaque J92.9 Risk for falls Z91.81 Chronic pain syndrome G89.4 Septic arthritis of knee, left M00.9 Anisocoria H57.02 Lumbosacral radiculitis M54.17 Hammertoes of both feet M20.41, M20.42 Seronegative rheumatoid arthritis M06.00 Hx of transient ischemic attack (TIA) 08/2022 Z86.73 Word finding difficulty R47.89 Moderate mitral regurgitation by prior echocardiogram 12/2022 I34.0 Thoracic myelopathy M47.14 Medical History Medical History Mass of left lung Left kidney mass [id number] left renal cyst Synovial cyst of lumbar facet joint (12/26/17) Regular astigmatism (07/31/12) NPDR (nonproliferative diabetic retinopathy) 01/29/15 MILD; DR. 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 Zamudio [facility] [place] Status post total left knee replacement (01/14/17) Tobacco Smoking/Tobacco Use Status: Former Tobacco Use Passive smoking exposure: Yes Alcohol Alcohol Intake: current Alcohol intake frequency: 0-2 drinks per day Alcohol type: hard liquor Details: 1 drink a night Substance Use Substance use: Rarely Substance use type: marijuana Details: Cannabis-used for pain management at . Vital Signs and Lab Results Vital Signs Most Recent Vital Signs in EMR: Most Recent Vital Signs Temp Pulse Resp BP Pulse Ox 36 C L 54 L 16 125/68 93 05/20/23 07:10 05/20/23 07:10 05/20/23 07:10 05/20/23 07:10 05/20/23 07:10 Lab Results Blood Type / Crossmatch: No Data to Display Complete Blood Count: No Data to Display Complete Metabolic Panel: No Data to Display Liver Function Panel: No Data to Display Coagulation Panel: No Data to Display Cardiac Panel: No Data to Display Arterial Blood Gas: No Data to Display Venous Blood Gas: No Data to Display Pancreas Panel: No Data to Display Thyroid Panel: No Data to Display Infectious Disease: No Data to Display Blood Cultures: No Data to Display Toxicology Panel: No Data to Display Imaging and Studies Imaging and Studies Study information below may be from another EMR and interpreted by another provider. Please see original notes in EMR for more complete details. EKG Summary: 06/16/2022: Exam: Resting ECG Reason for Exam: chest discomfort Patient Location: O HR:54 bpm ECG Measurements Heart Rate 54 AXIS OR 186 P 26 QRSd 132 QRS -48 QT 440 T44 QTc 417 Conclusion Sinus rhythm...normal P axis, V-rate 50- 99 Left ventricular hypertrophy...multiple LVH criteria Echocardiogram Summary: 12/14/2022: Conclusion The left ventricular wall thickness and chamber size. Ejection fraction is 55%. Wall motion is normal Normal right ventricular size and systolic function The left atrium is moderately dilated. Right atrium is normal in size Trileaflet aortic valve without stenosis or regurgitation Normal mitral valve with moderate central regurgitation Normal tricuspid valve with mild regurgitation. Estimated right ventricular systolic pressure is 25 mmHg Ascending aorta measures 3.54 cm Anesthesia Assessment and Plan Anesthesia History Personal History: No History of Anesthesia Complications Family History: No Family History of Anesthesia Complications Exercise Tolerance Exercise Tolerance: Metabolic Equivalents>4 Pertinent Negatives Pertinent Negatives: No Symptoms of GERD Cardiac & Pulmonary Exam Cardiac Exam: Normal S1/S2 Heart Sounds Pulmonary Exam: Clear Bilateral Breath Sounds Implantable Cardiac Device Does patient have a Pacemaker or an ICD?: No Airway Exam Known Difficult Airway: No Mallampati Class: 2 Mouth Opening: Normal (> 3cm) Thyromental Distance: Greater than 3 cm Neck Range of Motion: Full ROM Neck Circumference: Normal Teeth Condition: Normal Dentition ASA Classification ASA Score: ASA 3 Emergency Case?: No NPO Status NPO Status: NPO Clears >2 hours, Solids >8 hours Anesthesia Plan Resuscitation Status: Full Code Anesthesia Technique: MAC Anesthesia Airway Planned: Natural Airway Monitors Used: Standard Monitors
[2023-05-20 07:59] VITALS: BMI 288.4
[2023-05-20] MEDS: Balanced Salt Soln.-PLUS 500 ML BAG OP (08:16)
[2023-05-20] MEDS: Duovisc Viscoelastic System EACH 1 EACH (08:17)
[2023-05-20] MEDS: Tetracaine 0.5% 4 ML BTL OD (08:17)
[2023-05-20] MEDS: Lidocaine 1% Pres-Free 5 ML VIAL (08:18)
[2023-05-20] MEDS: Povidone-Iodine Ophth 30 ML BTL (08:20)
[2023-05-20 08:41] VITALS: BP 116/79; PULSE 55; RESP 16; TEMP 36.4; O2SAT 97
--- NOTE | 2023-05-20 08:41 | W.PM.DSUDISC ---
Date of service: 05/20/23 Time of Service: 08:41 Discharge Plan Disposition Patient Disposition: Home Discharge Details Attending Provider: Anoop Perry Primary Care Provider: Roula Kimball Home Meds and New Rx's Prescriptions: No Action acetaminophen [Masophen] 500 mg tablet 1,000 mg PO PRN Patient Comments: 05/19/18 takes prn. ramon insulin aspart U-100 [Novolog FlexPen U-100 Insulin] 100 unit/mL (3 mL) insulin pen See Rx Instructions subcut .COMPLEX Rx Instructions: subcutaneously per sliding scale; prn per SS-endocrine multivitamin Tablet 1 tab PO DAILY ergocalciferol (vitamin D2) 50 mcg (2,000 unit) capsule 100 mcg PO DAILY cyanocobalamin (vitamin B-12) 1,000 mcg capsule 1,000 mcg PO DAILY metformin 500 mg tablet 1,000 mg PO BID (DME) diabetic shoes See Rx Instructions .Route .MEDSUPPLY Qty: 1 0RF Rx Instructions: As directed - custom molded 1 pair. Jardiance 25 mg tablet 25 mg PO DAILY Levemir FlexTouch U100 Insulin 100 unit/mL (3 mL) insulin pen 18 unit subcut BID aspirin 325 mg tablet 325 mg PO DAILY mirtazapine 30 mg tablet 45 mg PO QHS Qty: 90 3RF triamcinolone acetonide 0.1 % cream 1 applic topical BID PRN (Reason: rash) Qty: 80 0RF hydroxyzine HCl 25 mg tablet 25 mg PO daily prn Qty: 90 0RF gabapentin 300 mg capsule 600 mg PO Q8H ONE TOUCH ULTRA 1 EACH EACH 1 ea Miscellaneous AC Qty: 270 3RF Rx Instructions: 250.01; 3 times daily testing ONE TOUCH LANCETS 1 EACH EACH 1 ea Miscellaneous BID Qty: 180 3RF folic acid 1 MG tablet 1 mg PO DAILY Patient Comments: 03/11/[address] DICKEY. methotrexate sodium 2.5 mg tablet 15 mg PO WEEKLY Patient Comments: omeprazole 20 mg capsule,delayed release(/EC) 20 mg PO DAILY Qty: 90 3RF rosuvastatin 10 mg tablet 10 mg PO DAILY Qty: 90 3RF losartan 25 mg tablet 25 mg PO DAILY Qty: 90 3RF ibuprofen 800 mg tablet 800 mg PO BID PRN (Reason: pain) Qty: 180 3RF Discharge Instructions Stand Alone Forms: Post-op Topical Cataract, Amalia Jimenez (DSU) Discharge Orders Discharge Orders: Discharge Order (Routine); Ordered 05/20/23 Ordered By: Anoop Perry DS: Diagnosis Discharge Diagnosis (1) Cortical age-related cataract, right eye: Status: Resolved (2) Nuclear age-related cataract, right eye: Status: Resolved
--- NOTE | 2023-05-20 08:44 | W.PM.OP ---
Date of service: 05/20/23 Time of Service: 08:44 Operative Note Operative Note DATE OF PROCEDURE: 05/20/23 PRE-OP DIAGNOSIS: Nuclear/cortical cataract, right eye poorly dilating pupil, right eye POST-OP DIAGNOSIS: same PROCEDURE: Cataract extraction using phacoemulsification with intraocular lens implant, right eye Insertion of pupillary expansion device SURGEON: Anoop Perry ANESTHESIA TYPE: Local By Surgeon and MAC Refer to Anesthesia Record ESTIMATED BLOOD LOSS: 0 PATHOLOGY: none sent COMPLICATIONS: None Patient was transported to: same day Patient's condition: stable Implants: Jamaal Clareon [id number] Indications: Progressive decreased vision due to cataract, right eye Poorly dilating pupil, right eye Procedure Description: CATARACT SURGERY OPERATIVE REPORT PREOPERATIVE DIAGNOSIS: Nuclear/cortical cataract, right eye Poorly dilating pupil, right eye High hyperopia POSTOPERATIVE DIAGNOSIS: Same OPERATION: Cataract extraction using phacoemulsification with posterior chamber intraocular lens implant, right eye. Pupillary dilation and iris stabilization with 6.25 mm pupillary expansion device IOL: IOL Automatic Grinder Operator/Model: Jamaal Clareon [id number] IOL Power: + 27.0 diopters IOL Serial Number: [id number] Optic Diameter: 6.0mm Haptic/Overall Diameter: 13.0mm PHACO INFO: Jamaal Cent[employer]ion Vision System with OZil and Active Fluidics Cumulative Dispersed Energy (CDE): 7.58 seconds SURGEON: Anoop Perry MD, ROLAND ANESTHESIA: Monitored Anesthesia Care (MAC), with local sub-tenon's anesthetic infiltration COMPLICATIONS: None SPECIMENS: None INDICATIONS FOR PROCEDURE: The patient is a 77-year-old gentleman with history of high hyperopia, left eye worse than right who has developed symptomatic bilateral cataracts. He has already undergone cataract surgery in the left eye and is doing well postoperatively. He now presents for cataract surgery in the right eye. See office notes for detailed information. PROCEDURE: The correct surgical eye was identified and marked as the right eye and the pupil was dilated in the preoperative area using mydriatics and cycloplegics. The dilated pupil size was 3.5 mm. The patient elected to proceed without oral sedation. The patient was brought to the operating room where cardiopulmonary monitoring was instituted and surgical time-out was performed, confirming the correct operative eye and IOL power. Topical anesthesia was administered and ophthalmic povidone-iodine 5% was instilled into the conjunctival fornices. The ele-ocular area was prepped with Betadine 10% solution and draped in the usual sterile fashion for intraocular surgery, including an aperture drape. A Tegaderm transparent film dressing was cut in half and used to cover the lashes and lid margins. Care was taken to sequester the lashes and lid margins under the Tegaderm dressing. A lid speculum was placed between the lids of the operative eye and the Yo-Jean Paul operating microscope was maneuvered into position. Jay scissors were then used to make a conjunctival buttonhole approximately 6mm posterior to the limbus in the inferonasal quadrant. Blunt dissection was carried out to expose bare sclera, and a blunt-tipped sub-tenon?s anesthesia cannula was introduced and passed posteriorly along the globe where non-preserved plain lidocaine was injected into posterior sub-Tenon?s space. A sideport knife was used to make a paracentesis port. Intraocular phenylephrine/lidocaine was injected into the anterior chamber. The anterior chamber was then filled with viscoelastic. A keratome knife was used to construct a two--plane clear corneal tunnel extending 2.0mm into clear cornea. A 6.25 mm pupillary expansion device was inserted into the pupillary space and engaged with the Kugel and hook. A flap was raised on the anterior capsule and capsulorhexis forceps were used to complete a continuous curvilinear capsulorhexis of 5.0 mm. Balanced salt solution was then used to perform cortical cleaving hydrodissection and nuclear hydrodelineation until the lens could be freely rotated within the capsular bag. The lens nucleus was then disassembled and removed within the capsular bag and iris plane using phacoemulsification. Residual cortical material was removed using the I/A handpiece. The posterior capsule was carefully polished to remove as much residual lens epithelial cells as safely possible. The capsular bag was then inflated and the anterior chamber deepened with cohesive viscoelastic. The lens implant described above was inserted into the capsular bag using the Jamaal Autonome Injector. A Kuglen hook was used to dial the IOL into position. The pupillary expansion device was then removed in the reverse order of its insertion. Residual viscoelastic was then removed first from posterior to the IOL, then from the anterior chamber using the I/A handpiece. The lens implant was noted to center nicely within the capsular bag. The incisions were stromally hydrated, and the anterior chamber was reformed using BSS. Then 0.5cc of moxifloxacin 1.0mg/ml were injected into the capsular bag and anterior chamber. The incisions were checked with a Weck spear and found to be secure. Several drops of ophthalmic povidone-iodine 5% were then applied to the eye followed by two drops of Imprimis combination prednisolone/moxifloxacin/nepafenac solution. The drapes were removed and a clear plastic protective eye shield was placed over the eye. The patient was then returned to Same Day Surgery in stable condition.
--- NOTE | 2023-05-20 09:08 | W.ANESPOSTOP ---
Postoperative Evaluation Date, Time and Location Date Performed: 05/20/23 Time Performed: 08:45 Patient Location: Day Surgery Unit Vital Signs Most Recent Imported Vital Signs: Most Recent Vital Signs Temp Pulse Resp BP Pulse Ox 36.4 C L 55 L 16 116/79 97 05/20/23 08:41 05/20/23 08:41 05/20/23 08:41 05/20/23 08:41 05/20/23 08:41 Pain Score Most Recent Pain Score: Most Recent Pain Score Pain Level 0 05/20/23 08:41 Assessment Mental Status: Awake (Alert & Oriented to Patient Baseline) Airway and Respiratory Function: Patent airway with normal (patient baseline) respiratory exam Cardiovascular Function: Hemodynamically Stable Hydration Status: Adequately Hydrated Nausea & Vomiting: No Nausea or Vomiting Pain: Pt. Denies Any Pain Peripheral Nerve Block: Patient did not receive a nerve block
== END 2023-05-20 09:11 | disposition home or self-care (01) ==
LOC: SUR 06:58
PROVIDERS: PCP Family Medicine; Visit Provider Ophthalmology
PROC: (CPT 66982; principal; 2023-05-20 08:15)
DX: H25.011 Cortical age-related cataract, right eye (principal); H25.11 Age-related nuclear cataract, right eye; Z98.42 Cataract extraction status, left eye
CPT/HCPCS: 66982; 00123; V2632

== ENCOUNTER → 2023-05-24 14:26 | Outpatient (BNVA) | payer MEDICARE, SELFPAY | PROVIDERS: PCP Family Medicine; Visit Provider Urology | DX: N40.1 Benign prostatic hyperplasia with lower urinary tract symptoms (principal); R35.1 Nocturia | CPT/HCPCS: 81003; 99214 ==

== ENCOUNTER → 2023-05-31 10:46 | Outpatient (BNVA) | payer MEDICARE, SELFPAY | PROVIDERS: PCP Family Medicine; Referring Provider Family Medicine; Visit Provider Urology | DX: N40.1 Benign prostatic hyperplasia with lower urinary tract symptoms (principal); R35.0 Frequency of micturition | CPT/HCPCS: 52000; 81003 ==

== ENCOUNTER 2023-08-12 11:03 | Outpatient (CLI) | payer MEDICARE, SELFPAY ==
--- NOTE | 2023-08-12 10:30 | DI.RAD_ITS ---
Exam(s) XR KNEE RT 3V AP,LAT,RONALD EXAM: XR KNEE RT 3V AP,LAT,RONALD CLINICAL HISTORY: RIGHT KNEE PAIN. TECHNIQUE: 2D digital imaging was performed of the right knee. Three views obtained. AP, lateral an d PA tunnel views were obtained. COMPARISON: CR CHEST 2 VIEWS PA,LAT from 01/23/2013 CR BONE LENGTH from 01/05/2017 FINDINGS: BONES: No acute fracture is present. No bony destructive lesion is seen. JOINTS: There is [id number] narrowing of the medial femoral tibial joint space. Calcification is seen within both the medial lateral femoral tibial joint consistent with chondrocalcinosis. There are densities seen in the joint space suspicious for loose bodies. Osteophytes are seen at the post erior patella. No joint effusion is seen. SOFT TISSUE: Vascular calcifications are present. 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 DATA REPOSITORY: RADIATION DOSE DELIVERED:
== END 2023-08-12 11:04 | disposition home or self-care (01) ==
LOC: DIORS 11:03
PROVIDERS: PCP Family Medicine; Referring Provider Family Medicine; Visit Provider Physician Assistant
DX: M17.11 Unilateral primary osteoarthritis, right knee
CPT/HCPCS: 73562; 99213

== ENCOUNTER 2024-02-28 01:22 | Outpatient (CLI) | payer MEDICARE, SELFPAY ==
--- NOTE | 2024-02-28 06:45 | DI.RAD_ITS ---
Exam(s) XR FOOT RT COMPLETE EXAM: XR FOOT RT COMPLETE CLINICAL HISTORY: Right foot pain,m79.671. TECHNIQUE: 2D digital imaging was performed of the right foot. Three images were obtained. AP, obl ique and lateral views were obtained. COMPARISON: No exams were available for comparison FINDINGS: BONES: No acute fracture is present. No bony destructive lesion is seen. There is a bipartite medial sesamoid at the head of the 1st metatarsal bone. There is a small plantar calcaneal spur. JOINTS: No dislocation present. Mild arthrosis of the right foot particularly at the 1st MTP joint. Hammertoe deformities of the 2nd and 3rd toes are noted. SOFT TISSUE: There may be mild soft tissue swelling lateral to the 5th metatarsophalangeal joint. Va scular calcifications are present. IMPRESSION: Chronic changes in the foot as described above. DATA REPOSITORY: RADIATION DOSE DELIVERED:
--- NOTE | 2024-02-28 06:45 | DI.RAD_ITS ---
Exam(s) XR FOOT LT COMPLETE EXAM: XR FOOT LT COMPLETE CLINICAL HISTORY: Left foot pain,m79.672. TECHNIQUE: 2D digital imaging was performed of the left foot. Images were obtained. AP, oblique a nd lateral views were obtained. COMPARISON: No exams were available for comparison FINDINGS: BONES: No acute fracture is present. No bony destructive lesion is seen. There is a bipartite medial sesamoid adjacent to the head of 1st metatarsal bone. Mild arthrosis is seen of the foot particularl y at the talonavicular joint. JOINTS: No dislocation present. Second through 5th hammertoes are present. SOFT TISSUE: Vascular calcifications are present. IMPRESSION: Arthrosis of the left foot. DATA REPOSITORY: RADIATION DOSE DELIVERED:
== END 2024-02-28 01:42 ==
LOC: DI 01:23
PROVIDERS: PCP Family Medicine; Visit Provider Podiatrist
DX: M19.072 Primary osteoarthritis, left ankle and foot (principal); M19.071 Primary osteoarthritis, right ankle and foot
CPT/HCPCS: 73630

== ENCOUNTER → 2024-10-04 15:23 | Outpatient (BNVA) | payer MEDICARE, SELFPAY | PROVIDERS: PCP Family Medicine; Referring Provider Family Medicine; Visit Provider Urology | DX: N40.1 Benign prostatic hyperplasia with lower urinary tract symptoms (principal); R35.1 Nocturia; R39.9 Unspecified symptoms and signs involving the genitourinary system | CPT/HCPCS: 99214 ==

== ENCOUNTER 2024-11-07 01:05 | Outpatient (CLI) | payer MEDICARE, SELFPAY ==
--- NOTE | 2024-11-07 06:30 | DI.RAD_ITS ---
Exam(s) XR CHEST 2V PA LATERAL EXAM: XR CHEST 2V PA LATERAL CLINICAL HISTORY: chest discomfort TECHNIQUE: 2D digital imaging was performed of the chest. Two images were obtained. PA and lateral views were obtained. COMPARISON: CR PORTABLE AP CHEST, POST LINE from 02/04/2017 FINDINGS: MEDIASTINUM: There are calcified right hilar lymph nodes. HEART: Normal. PULMONARY VASCULATURE: Normal. LUNGS: There is a calcified granuloma in the right lateral lung. No focal consolidating infiltrates are present. PLEURAL SPACE: No pleural effusion or pneumothorax. BONE:Within normal limits for the patient's age. OTHER FINDINGS:Normal. IMPRESSION: No acute pulmonary findings. DATA REPOSITORY: RADIATION DOSE DELIVERED:
--- NOTE | 2024-11-07 06:30 | DI.US_ITS ---
APPROVED REPORT EXAM: Comprehensive 2D, Doppler, and color-flow Echocardiogram Patient Location: Out-Patient Head Grinder: Manuela Rodriguez RDCS (AE) Other Information Study Quality: Adequate Conclusion Normal left ventricular wall thickness and chamber size. Ejection fraction is 60%. Wall motion is n ormal Normal right ventricular size and function Both atria are normal in size There are no structural valvular abnormalities Mild to moderate mitral regurgitation Ascending aorta measures 3.55 cm Wall motion Left Ventricle The left ventricle is normal size. The left ventricular systolic function is normal. The left ventric ular ejection fraction is within the normal range. There is normal left ventricular wall thickness. T here is normal LV segmental wall motion. There is no ventricular septal defect visualized. LVEF is 60 %. Right Ventricle The right ventricle is normal size. The right ventricular systolic function is normal. Atria The left atrium size is normal. The right atrium size is normal. The interatrial septum is intact wit h no evidence for an atrial septal defect. Aortic Valve The aortic valve is normal in structure. Aortic valve is trileaflet. There is no aortic valvular sten osis. No aortic regurgitation is present. Mitral Valve The mitral valve is normal in structure. No evidence of mitral valve stenosis. Mild to moderate mi tral regurgitation. Tricuspid Valve The tricuspid valve is normal in structure. There is no tricuspid valve stenosis. Trace tricuspid reg urgitation. The RVSP is 28.9mmHg. Pulmonic Valve The pulmonary valve is normal in structure. There is no pulmonic valvular stenosis. There is no pulmo rick valvular regurgitation. Great Vessels The aortic root is normal in size. The ascending aorta is mildly dilated. Aortic arch is not well vis ualized. IVC is normal in size and collapses >50% with inspiration. Pericardium There is no pericardial effusion. 2D Dimensions IVSD d PLAX 0.97 cm M: 0.6-1.2 Ao Root d 3.68 cm M: 3.1 - 3.7 LVPW d PLAX 0.99 cm M: 0.6 - 1.2 Ao Asc Diam d 3.55 cm M: 2.6 - 3.4 LVID d PLAX 5.35 cm M: 4.2 - 5.8 LVDs 3.57 cm M: 2.5 - 4.0 LV EF Teichholz 61.5 % FS 33.31 % LV EDV (Teich) 138.3 mL LV ESV (Teich) 53.3 mL M-Mode TAPSE 2.73 cm (M/F) >1.7 Auto EF LV EDV A4C 150.3 mL LV EDV A2C 164.8 mL LV EDV BP 158.3 mL LV ESV A4C 63.3 mL LV ESV A2C 71.5 mL LV ESV BP 68.3 mL LVEF(%) A4C 57.9 % LVEF(%) A2C 56.6 % LVEF(%) BP 56.9 % LV SV A4C 86.9 ml LV SV A2C 93.3 ml LV SV BP 90.0 ml LV CO A4C 4.7 L/min LV CO A2C 5.8 L/min LV CO BP 5.3 L/min HR A4C 54.37 BPM HR A2C 62.16 BPM LV EDV Index (BP) LA Volume LA Length A4C 5.9 cm LA Length A2C 5.6 cm LA Area A4C s 23.01 cm2 LA Area A2C s 18.63 cm2 LA Vol A4C A-L 76.03 mL LA Vol A2C A-L 52.36 mL LA Vol Biplane A-L 64.7 mL LA Vol/BSA A4C A-L LA Vol/BSA A2C A-L LA Vol/BSA BP A-L 30.2 mL/m2 LA Vol A4C MOD 72.3 mL LA Vol A2C MOD 50.3 mL LA Vol BP MOD 61.3 mL RA Volume RA Area A4C 12.7 cm2 RA ESV A4C (A-L) 28.1mL RA Vol/BSA A4C A-L RA Length A4C 4.8 cm RA ESV A4C (MOD) 26.8mL LV Diastology MV E' medial 0.080 (>0.07 m/s) MV E Vmax 0.72 (0.4-1.3 m/s) MV E/E' MED 8.96 (<14) MV A Vmax 0.65 (0.4-1.3 m/s) MV E' lateral 0.087 (>0.1 m/s) E/A Ratio 1.1 MV E/E' LAT 8.23 (<14) MV E' Average 0.084 m/s MV E/E'(average) 8.58 Aortic Valve AoV Vmax 1.35 m/s LVOT Vmax 0.90 m/s AoV Peak Grad 7.3 mmHg LVOT Peak Grad 3.2 mmHg AoV Area (Vmax) 2.34 cm2 LVOT VTI 0.238 m AoV VTI 0.353 m LVOT Mean Grad 1.9 mmHg AoV Mean Claus. 0.95 m/s LVOT SV 83.65 mL AoV Mean Grad 4.1 mmHg LVOT Diam s 2.10 cm AoV Area (VTI) 2.37 cm2 AV Regurg Peak Gr. 7.26 mmHg Velocity Ratio 0.67 Mitral Valve MV DT 244 (160-240 msec) MV Vmax TIPS 0.63 m/s MV Mean Grad 0.7 (<2mmHg) MV VTI 0.292 m Pulmonary Valve PV Vmax 0.81 (0.5-1.5 m/s) RVOT Vmax 0.60 m/s PV Peak Grad 2.7 mmHg RVOT Peak Gr. 1.4 mmHg PV Mean Claus 0.62 m/s RVOT VTI 0.159 m PV Mean Grad 1.7 mmHg RVOT Mean Gr. 0.9 mmHg Tricuspid Valve RA Pressure 3.00 mmHg TR Vmax 2.55 m/s TV S' 0.15 m/s TR Peak Grad 25.9 mmHg RVSP (TR) 28.9 mmHg
== END 2024-11-07 01:25 ==
LOC: DI 01:05
PROVIDERS: PCP Family Medicine; Visit Provider Internal Medicine Cardiovascular Disease
DX: I34.0 Nonrheumatic mitral (valve) insufficiency (principal); R07.9 Chest pain, unspecified
CPT/HCPCS: 93306; 71046

== ENCOUNTER → 2025-01-11 09:56 | Outpatient (BNVA) | payer MEDICARE, SELFPAY | PROVIDERS: PCP Family Medicine; Referring Provider Family Medicine; Visit Provider Urology | DX: N40.1 Benign prostatic hyperplasia with lower urinary tract symptoms (principal); R35.1 Nocturia | CPT/HCPCS: 99214 ==

== ENCOUNTER → 2025-02-28 10:23 | Outpatient (BNVA) | payer MEDICARE, SELFPAY | PROVIDERS: PCP Family Medicine; Referring Provider Family Medicine; Visit Provider Podiatrist | DX: M21.371 Foot drop, right foot (principal); M21.372 Foot drop, left foot; E11.42 Type 2 diabetes mellitus with diabetic polyneuropathy; Z79.4 Long term (current) use of insulin; M20.41 Other hammer toe(s) (acquired), right foot; M20.42 Other hammer toe(s) (acquired), left foot; G60.0 Hereditary motor and sensory neuropathy; R26.89 Other abnormalities of gait and mobility; L65.9 Nonscarring hair loss, unspecified; L60.2 Onychogryphosis | CPT/HCPCS: 11719 ==